=== PATIENT | male | born 1950 | race Caucasian/White ===

== ENCOUNTER 2018-09-21 14:47 | Inpatient (IN) | payer OTHER ==
[~2018-09-21] VITALS: Ht 170.2 cm; Wt 83.4 kg
[2018-09-21] MEDS ORDERED: K-TAB ER20 MEQ PO (15:08)
[2018-09-21] MEDS ORDERED: OXYCODONE HCL5 MG PO (18:06)
[2018-09-21] MEDS ORDERED: TRAZODONE HCL150 MG PO (18:07)
[2018-09-21] MEDS ORDERED: LANTUS100 UNITS/ SUB-Q (18:07)
[2018-09-21] MEDS ORDERED: ELIQUIS5 MG PO (18:07)
[2018-09-21] MEDS ORDERED: FOSINOPRIL SODI40 MG PO (18:08)
[2018-09-21] MEDS ORDERED: NOVOLOG100 UNIT/1 SUB-Q (18:08)
[2018-09-21] MEDS ORDERED: MODAFINIL200 MG PO (18:08)
[2018-09-21] MEDS ORDERED: OMEPRAZOLE20 MG PO (18:08)
[2018-09-21] MEDS ORDERED: VENTOLIN HFA18 GM INH (18:09)
[2018-09-21] MEDS ORDERED: REFRESH PLUS1 EACH OU (18:09)
[2018-09-21] MEDS ORDERED: LIPITOR40 MG PO (18:09)
[2018-09-21] MEDS ORDERED: FLONASE ALLERG9.9 ML NAS (18:10)
[2018-09-21] MEDS ORDERED: ALDACTONE25 MG PO (18:10)
--- NOTE | 2018-09-21 21:00 | NUR ---
PATIENT ARRIVED VIA STRETCHER FROM ED. SELF TRASNFERED INDEPENDENTLY. STAND WEIGHT DONE. PATIENT SITTING ON EDGE OF BED. ADMISSION COMPLETED. IN TO CONSULT ON PATIENT. PATIENT REPORTS ABD PAIN AND GENERALIZED CHRONIC PAIN 10/05. PRN MORHPINE PROVIDED. IV FLUIDS PER ORDER. ORIENTED PATIENT TO ROOM, PLAN OF CARE, AND ENCOURAGED HIM TO CALL FOR ANY NEEDS.
--- NOTE | 2018-09-21 23:17 | NUR ---
PATIENT ASSESSMENT DONE. SEE ASSESSMENT FOR DETAILS. PATIENT IS GOING TO TRY AND GET SOME SLEEP AT THIS TIME.
--- NOTE | 2018-09-22 01:09 | NUR ---
PATIENT STILL AWAKE, HAS NO NEEDS AT THIS TIME AND IS WATCHING TV IN THE DARK IN BED.
--- NOTE | 2018-09-22 02:11 | NUR ---
PATIENT COMPLAINING OF 8/10 ABD PAIN. 4MG IV MORPHINE GIVEN.
--- NOTE | 2018-09-22 03:31 | NUR ---
PATIENT CALLED WITH COMPLAINT OF NAUSEA THAT WOKE HIM UP. 12.5MG IV PHENERGAN IN 20MLS NS GIVEN SIVP.
--- NOTE | 2018-09-22 03:31 | NUR ---
PATIENT GIVEN 12.5MG IV PHENERGAN FOR C/O NAUSEA.
--- NOTE | 2018-09-22 05:30 | NUR ---
PATIENT RESTING IN BED WATCHING TV NAUSEA GONE. NO COMPLAINTS OR NEEDS AT THIS TIME EXCEPT HIS PAIN IS STILL AT 7/10 AND HE SAYS THAT IS RIGHT WHERE IT TAKES THE EDGE OFF THE PAIN. BOWEL TONES ACTIVE. LUNGS CLEAR. 2+ PITTING EDEMA HAS IMPROVED IN HIS FEET. LUNG BASES CLEAR BUT ARE DEMINISHED. IV INFUSING AND WNL.
--- NOTE | 2018-09-22 07:46 | NUR ---
0724: Bedside report recieved from John BULLARD. Call lyles within reach.
--- NOTE | 2018-09-22 08:02 | NUR ---
FAXED CHART NOTES TO [facility] WITH DR BALLESTEROS REQUEST FOR TRANSFER TO A [place] [facility] THAT CAN TAKE CARE OF HIS HERNIA NEEDS, THESE CHART NOTES INCLUDE, COPY OF ORDER, FACE SHEET, ER NOTES AND SUMMARY, H AND P, CONSULT, IMAGING, LABS AND MEDS.
--- NOTE | 2018-09-22 08:12 | NUR ---
Pt now sitting up at the bedside and he states the position change has helped his abd pain. He is now rating it at an 8/10. See Emar.
--- NOTE | 2018-09-22 09:24 | NUR ---
Pt sleeping, RR 16.
--- NOTE | 2018-09-22 11:09 | NUR ---
Pt ambulated in the halls and walked two laps, he was stable on his feet with his cane. Pt denies any pain or sob at this time and he states he has some nausea but that it is under control at this time.
[2018-09-22] MEDS ORDERED: VIAGRA100 MG PO (11:57)
[2018-09-22] MEDS ORDERED: LASIX40 MG PO (11:57)
--- NOTE | 2018-09-22 11:58 | NUR ---
MED REC COMPLETE
--- NOTE | 2018-09-22 12:11 | NUR ---
Pt complaints of nausea and was medicated as ordered.
--- NOTE | 2018-09-22 13:50 | NUR ---
PT STATES HIS PAIN IS A 9/10, HE WAS MEDICATED ORDERED, SEE EMAR. PT IS UPSET HE STATES THAT "NO ONE IS GIVING ME ANY INFORATION". I ASKED IF HE SAW DR GROSS TODAY AND HE STATES THAT HE DID BUT DID NOT GET THE INFORMATION HE NEEDS. I ATTEMPTED TO INFORM HIM OF WHAT WE ARE DOING FOR HIM AND HE STATES, "I CAN DO THIS AT HOME". THE PT STATES THAT HE NEEDS TO SEE HIS DOCTOR, I WILL NOTIFY DR GROSS OF THE PT'S COMPLAINTS. THE PT WAS GIVEN CHF INFORMATION AND CHF WAS DISCUSSED.
--- NOTE | 2018-09-22 14:31 | NUR ---
DISCUSSED HEALTH CARE COURSE WITH PATIENT AFTER BEING ASKED BY PRIMARY NURSE. PATIENT BECAME BELIGERENT AND ASKED TO SEE DR. GROSS, ASKED THIS NURSE TO LEAVE HIS ROOM. DR. GROSS NOTIFIED, BUT HAS ALREADY SEEN PATIENT TODAY. DR. BALLESTEROS IN TO SEE PATIENT.
--- NOTE | 2018-09-22 14:47 | NUR ---
Dr Corona notified of the pt's compliants and he and Nicol BULLARD are in the pt's room speaking with him at this time.
--- NOTE | 2018-09-22 15:39 | NUR ---
The pt states his pain is improved and he is now happy that he has a "plan" after speaking with Dr Corona. The pt was instructed in his new diet orders and in how to order his dinner.
--- NOTE | 2018-09-22 16:02 | NUR ---
PATIENT ASKING WHAT HE CAN EAT ON A LOW-FIBER DIET. I BROUGHT HIM A LOW-FIBER MENU AND ALSO A PRINTOUT FROM THE [facility] THAT HE CAN TAKE HOME. HE LOOKED IT OVER AND IS LOOKING FORWARD TO ORDERING DINNER ON HIS OWN HE HASN'T EATEN IN 1.5 DAYS. WILL CONTINUE TO MONITOR.
--- NOTE | 2018-09-22 16:12 | NUR ---
PT CALLED AND STATES HIS PAIN IS AN 8 AND NEVER GOES BELOW A 6. SEE EMAR.
--- NOTE | 2018-09-22 16:30 | NUR ---
RECIEVED A PHONE MESSAGE FROM PT STATING THAT WHEN HE DOES GET DC'D HE WOULD LIKE FOR THE DR TO ORDER SOME KIND OF ORAL ANTIEMETIC. I DISCUSSED THIS WITH DR BALLESTEROS AND HE STATED THAT SHOULDN'T BE A PROBLEM.
--- NOTE | 2018-09-22 17:22 | NUR ---
Pt resting in his bed and he states he is awaiting his dinner. He appears comforable and in no distress at this time.
--- NOTE | 2018-09-22 18:15 | NUR ---
Pt ate about 90% of his dinner and denies any change in condition.
--- NOTE | 2018-09-22 18:50 | NUR ---
Pt complains of nausea and is being treated as ordered. The pt states that the nausea is no worse than what it was prior today before he ate. See EMAR.
--- NOTE | 2018-09-22 18:50 | NUR ---
PT CALL LIGHT ON. PT REQUESTS NAUSEA MEDICATION. PTS RN CONSULTED, OK TO GIVE PHENEGRAN. GIVEN ORDRED (SEE MAR). PT SITTING ON EDGE OF BED. NO ADDITIONAL REQUESTS OR COMPLAINTS AT THIS TIME.
--- NOTE | 2018-09-22 18:54 | NUR ---
Pt ate dinner and is now complaining of nausea, he did state that this is the same nausea that he felt prior in the day as well. Dr Corona aware of the pt's status at this time.
--- NOTE | 2018-09-22 19:25 | NUR ---
SHIFT REPORT RECEIVED FROM ORLANDO THEODORE AT BEDSIDE. PT AWAKE AND RESTING IN BED, FAMILY IN ROOM. IV FLUIDS INFUSING PER MD ORDERS, IV SITE WNL. PT DENIES NEEDS, CALL LIGHT IN REACH.
--- NOTE | 2018-09-22 19:25 | NUR ---
SHIFT REPORT RECEIVED FROM ORLANDO THEODORE AT BEDSIDE. PT IN BED AND AWAKE. FAMILY IN ROOM. IV FLUIDS INFUSING PER MD ORDERS, IV SITE WNL. PT DENIES PAIN OR ADDITIONAL NEEDS. NO DISTRESS NOTED, PT APPEARS COMFORTABLE. CALL LIGHT IN REACH.
--- NOTE | 2018-09-22 19:55 | NUR ---
ACCUCHECK COMPLETED BY AIRPLANE PILOT SUPERVISOR SHADI. RESULT OF 340.
--- NOTE | 2018-09-22 20:15 | NUR ---
CHARGE NRSE ROUNDING NOTE: IN ROOM, CBG 340'S, UPSET THAT THIS NURSE DID HIS ACCUCHECK PRIOR TO GIVING HIM HIS INSULIN. EXPLAINED TO PT HOW WE USUALLY DO ACCUCHECK FIRST SOMETIMES INSULIN MAY NOT BE NEEDED IF HIS BG IS LOW. " WHAT I DO AT HOME IS I GIVE MY INSULIN FIRST, I WAIT AND THEN I CHECK MY SUGARS". REASSURED, PRIMARY NURSE NOTIFIED. NO OTHER REQUESTS, CALL LIGHT AT BEDSIDE, PT SITTING EDGE OF BED
--- NOTE | 2018-09-22 20:30 | NUR ---
ASSESSMENT COMPLETE, PT A/OX4. DENIES PAIN, PT ON RA. ACCUCHECK RESULT OF 340, 9 UNITS INSULIN SS AND 10 UNITS LANTUS ADMINISTERED TO SELF BY PT. PT REPORTS NAUSEA IS "BETTER". WILL MONITOR, BOWEL TONES ACTIVE. IV FLUIDS INFUSING PER MD ORDERS, IV SITE WNL. SITE OF INCARCERATED HERNIA NOTED TO RIGHT SIDE OF ABDOMEN, TENDERNESS NOTED. WILL MONITOR. NO FURTHER NEEDS, CALL LIGHT IN REACH.
--- NOTE | 2018-09-22 22:12 | NUR ---
Pt medicated with 0.5mg IV per c/o 11/05 abd pain.
--- NOTE | 2018-09-23 01:19 | NUR ---
pt reports increasing nausea, prn phenergen administered per pt request. iv site wnl, pt denies additional needs. call light in reach.
--- NOTE | 2018-09-23 03:30 | NUR ---
PT RESTING IN BED, EYES CLOSED, RR WNL. PT APPEARS COMFORTABLE, NO SIGNS OF DISTRESS NOTED. CALL LIGHT IN REACH.
--- NOTE | 2018-09-23 04:16 | NUR ---
PATIENT C/O 8/10 ABD PAIN AND GIVEN 4MG IV MORPHINE SLOW IV PUSH.
--- NOTE | 2018-09-23 05:32 | NUR ---
PT RESTING IN BED, EYES CLOSED, RR WNL. PT APPEARS COMFORTABLE, NO DISTRESS NOTED, CALL LIGHT IN REACH. IV FLUIDS INFUSING PER MD ORDERS.
--- NOTE | 2018-09-23 05:48 | NUR ---
PT SLEPT ON AND OFF THIS SHIFT. A/OX4, PAIN CONTROLLED WITH PRN MORPHINE.VSS, PT ON RA. IV FLUIDS INFUSING PER MD ORDERS, IV SITE WNL. PT ON LOW FIBER DIET, TOLERATING WELL. SCHEDULED ACCUCHECKS WITH INSULIN SS AND LANTUS AT NIGHT. VOIDING QS, NO BM THIS SHIFT. USES CALL LIGHT APPROPERIATELY.
--- NOTE | 2018-09-23 06:30 | NUR ---
in room to complete vs. room vs chart unable to obtain bp reading. this rn went to go get vs chart in hallway. when this rn returned, pt was upset and stated, "the other nurse came in here and shook me to wake me up. then she wanted me to get on the scale. i said, i'm going to go pee first then i will". pt then began crying and stated, "she invaded my space, this room is my space". this rn provided therapeutic communication to pt. this rn is unsure exactly who pt was referring to as this rn and lashawn jose were in the room to collect vs and complete assessment. this rn gently patted pt on arm and stated, "radha, i need to get your vital signs". pt was minimally startled then appeared compliant and in fine spirits. this rn was told by lashawn jose that the pt kicked her out of room. this rn apologized to pt and provided therapeutic communication to resolve misscommunication. pt took own weight on scale, reports weight of 183.3. pt also resports 9/10 pain, 5 mg of prn morphine administered. pt denies additional needs, appears comfortable. call light in reach. iv fluids infusing per md orders.
--- NOTE | 2018-09-23 07:20 | NUR ---
PT RESTING IN SEMI FOWLERS POSITION IN BED, WATCHING TV. PT ALERT AND ORIENTED. BEDSIDE REPORT RECEIVED FROM ALEAH SEGOVIA. PT DENIES NEEDS/CONCERNS AND APPEARS TO BE IN NO DISTRESS. CALL LIGHT AND H2O IN REACH.
--- NOTE | 2018-09-23 08:23 | NUR ---
CALLED AND UPDATED LUPE BRANCH ON PT CONDITION AND PLAN FOR NOW.
--- NOTE | 2018-09-23 09:07 | NUR ---
PT REPORTS 9/10 PAIN TO ABDOMEN, SITTING UP IN BED WATCHING TV. PRN IV OPIOD ADMINISTERED PER PT REQUEST. PT ASSESSMENT COMPLETED AND AM MEDS ADMINISTERED, SEE EMAR. CALL LIGHTAND H20 IN REACH. PT DENIES FURTHER NEEDS/CONCERNS.
[2018-09-23] MEDS ORDERED: ZOFRAN4 MG PO (09:55)
--- NOTE | 2018-09-23 10:15 | NUR ---
PT RESTING IN SEMI FOWLERS POSITION IN BED, REPORTS READINESS TO DISCHARGE. CALL LIGHT AND H2O IN REACH. PT DENIES FURTHER NEEDS/CONCERNS.
--- NOTE | 2018-09-23 10:19 | NUR ---
DID PATIENT'S BLOOD SUGAR CHECK. SET PATIENT UP FOR SHOWER. AFTER HE ATE BREAKFAST I WRAPPED HIS IV. HE WENT IN AND TOOK HIS SHOWER. I CHANGED THE BED LINENS. AFTER HE WAS FINISHED TAKING HIS SHOWER I WENT IN AND PICKED UP ALL THE TOWELS. PATIENT IS NOW LAYING IN HIS BED AND RELAXING.
--- NOTE | 2018-09-23 15:35 | HP ---
[facility] [address], [place] [address] Signed ADMISSION DATE: 09/21/2018 REASON FOR ADMISSION: Large incarcerated incisional hernia through prior paramedian incision. HISTORY OF PRESENT ILLNESS: This 67-year-old white man is a and gets all of his medical care at the [facility]. The patient had been having several days of constipation and some increased swelling of his right lower abdomen. He has self administered a diuretic which he had (not under the direction of medical care for this) as he has been developing increasing swelling of his legs. He had nausea and some vomiting, but no significant abdominal pain particularly. He has been passing flatus and had a hard bowel movement yesterday. He is feeling better, but presented to the clinic at the [facility]. He was evaluated by Dr. Zaidi, who notes in his notation that the radiology services were essentially not functional at this time. He recommended that the patient go to emergency room for possible small-bowel obstruction for evaluation and imaging. He presented to [facility] Emergency Room because he lives in [place] though he was advised according to notes to go to the emergency room in [place] itself. He was evaluated by Dr. Santiago and thought not to have significant toxicity by any means. His complaints earlier in the day had included abdominal pain, constipation, episodic vomiting, and some dry heaves. A plain abdominal x-ray had shown possible small bowel obstruction and on that basis, a CT scan was performed. The CT scan does not to my examination truly shows small bowel obstruction per se, but it does show a fair amount of small bowel in the subcutaneous space in the right lower abdomen related to incisional hernia or as was interpreted by the radiologist a spigelian hernia. As the patient was not particularly toxic in his first appearance, I was called about this by the emergency room physician. When inquiring regarding his lab status, no labs have been obtained and therefore they were to be obtained in followup and disposition based on those findings. I did not receive a call from the emergency room again and therefore presented myself. He is now under the watchful eye of Dr. Curiel. His lab studies performed did not show an elevated white count (9.4), hematocrit 45.2 with platelets 251,000. Coag studies are pending and chem profile showed a creatinine of 1.50, but electrolytes otherwise normal. Glucose was elevated at 270. Liver enzymes Electronically Signed By: ELLIE BALLESTEROS MD 09/23/18 1535 PATIENT NAME: NINA PINZON HISTORY AND PHYSICAL DATE OF : 54 REPORT #: [id number] PHYSICIAN: ELLIE BALLESTEROS MD PCP: SULTANA ZAIDI MD REPORT IS CONFIDENTIAL AND NOT TO BE RELEASED WITHOUT AUTHORIZATION [facility] [address], [place] [address] Signed were normal. 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 There was an empty urinary bladder. The patient has, since I presented, now been started on intravenous fluids. He has urinated while in the emergency room. PAST MEDICAL HISTORY: Significant for: 1. Coronary bypass grafting x3 with pacemaker placement. 2. Distant history of appendectomy through right paramedian incision with subsequent possible incisional hernia requiring repair. 3. Chronic opioid tolerance for which he is being weaned from oxycodone. 4. Self described fibromyalgia. 5. Stage 3 renal failure without need for dialysis or other renal replacement therapy. 6. He is known to have congestive heart failure by self description. MEDICATIONS: His current medications include potassium chloride, oxycodone 5 mg p.o., Eliquis 5 mg p.o. daily, trazodone 150 mg p.o. h.s., Lantus insulin, omeprazole 20 mg daily, fosinopril 40 mg p.o. daily, modafinil 200 mg daily, Refresh Plus ophthalmic eyedrops, albuterol inhaler, atorvastatin 40 mg daily, Flovent Diskus inhaler, and spironolactone for edema. SOCIAL HISTORY: The patient was formally from [place]. He moved to [place] in the past number of months as expanding rent increases in the [place] area forced him out. He has seven children. He has been . He is estranged from his children and his . He lives alone. He denies alcohol use. He denies prior alcoholism. REVIEW OF SYSTEMS: He denies any abdominal pain at this time, formally he did have abdominal pain. He has not had nausea, vomiting, or belching since being in the ER. His abdominal pain is improved. PHYSICAL EXAMINATION: GENERAL: This is a pleasant white man, who is standing at the foot of his stretcher when I met him. He does not look toxic or even uncomfortable at this time. HEENT: His mucous membranes are dry, however. Trachea is midline. CHEST: Clear. HEART: Regular without murmur. ABDOMEN: Somewhat distended and definitely obese and dysmorphic. On the right lower Electronically Signed By: ELLIE BALLESTEROS MD 09/23/18 1535 PATIENT NAME: NINA PINZON HISTORY AND PHYSICAL DATE OF : 54 REPORT #: [id number] PHYSICIAN: ELLIE BALLESTEROS MD PCP: SULTANA ZAIDI MD REPORT IS CONFIDENTIAL AND NOT TO BE RELEASED WITHOUT AUTHORIZATION [facility] [address], [place] [address] Signed abdomen is a bulky area of herniation, which is mildly tender with manipulation. There is a right paramedian incision noted in the region of the hernia. EXTREMITIES: Show peripheral edema. LABORATORY STUDIES: Show white count of 9.4, hematocrit 45.2. Electrolytes are abnormal for creatinine of 1.50, liver enzymes are normal, albumin 3.5. The CT scan was reviewed in detail. I made multiple calls to the [facility] ( ) and spoke with multiple operators. There was no clinician or officer of the day or any other point of contact including nursing sanitation supervisor with whom I can speak unfortunately. ASSESSMENT AND PLAN: The patient does not really have a bowel obstruction or certainly not a high-grade bowel obstruction. He has a longstanding incisional hernia related to a paramedian incision. It is not a spigelian hernia technically, it is an incisional hernia actually. There was a fair amount of bowel out in the hernia in the subcutaneous space, which is a longstanding phenomenon and according to patient unknown to his care providers at the [facility]. He has underlying comorbidities, which were significant including congestive heart failure, pacemaker placement, ascites of the abdomen, peripheral edema, chronic anticoagulation with Eliquis, and other lesser comorbidities. I believe the safest course for this patient is admission to the hospital for IV fluid administration. Most likely elective hernia repair would be advocated. Whether he had a bowel obstruction or obstruction like symptoms that have since resolved is uncertain. We will get abdominal KUB in the morning. We will have systems planner help coordinate a transfer to the [facility] as is typically the case under such circumstances for definitive management of his incarcerated incisional hernia, in particular appropriate given his underlying comorbidities and high probability of prolonged hospitalization. Discussed all this with the patient who understands. MD HAIDER Gomes/JESIKAL /[id number] Electronically Signed By: ELLIE BALLESTEROS MD 09/23/18 1535 PATIENT NAME: NINA PINZON HISTORY AND PHYSICAL DATE OF : 54 REPORT #: [id number] PHYSICIAN: ELLIE BALLESTEROS MD PCP: SULTANA ZAIDI MD REPORT IS CONFIDENTIAL AND NOT TO BE RELEASED WITHOUT AUTHORIZATION [facility] [address] [place] [id number] Signed cc: Sultana Zaidi MD Copies: SULTANA ZAIDI MD ~ Electronically Signed By: ELLIE BALLESTEROS MD 09/23/18 1535 PATIENT NAME: NINA PINZON HISTORY AND PHYSICAL DATE OF : 54 REPORT #: [id number] PHYSICIAN: ELLIE BALLESTEROS MD PCP: SULTANA ZAIDI MD REPORT IS CONFIDENTIAL AND NOT TO BE RELEASED WITHOUT AUTHORIZATION
--- NOTE | 2018-09-24 22:35 | DS ---
[facility] [address], [place] [address] Signed ADMISSION DATE: 09/21/2018 DISCHARGE DATE: 09/23/2018 REASON FOR ADMISSION: This 67-year-old white man is a and gets his medical care at the [facility] in [place]. He lives in [place]. He has had several days of increasing constipation and some swelling of his right lower abdomen. He has been episodically compliant medically but sometimes does direct his own use of prescribed medications and does self administration of diuretics. He is a patient of [facility]. [facility] at [facility] [place] [place] He had seen him on the day of his admission with nausea and vomiting, diminished passage of flatus and only hard bowel movements the day before. He was evaluated by Dr. Zaidi noting lack of Radiology Services at the local [place] hospital at the time of his evaluation. He recommended the patient go to the emergency room for possible small-bowel obstruction evaluation and imaging. He presented to [facility] because he lives in [place] and was evaluated by Dr. Santiago. Plain abdominal x-ray was suggestive of bowel obstruction. A CT scan showed a large right lower abdominal wall hernia with enteric contents and possible concordant small-bowel obstruction. He is admitted for further evaluation and care for presumed small bowel obstruction. PHYSICAL EXAMINATION: GENERAL: Pleasant white man, who did not look to be in severe distress. CHEST: Clear. HEART: Irregularly irregular. Median sternotomy incision was well healed. As he did not appears significantly toxic and despite a rather sizable hernia with small bowel in the subcutaneous space in the right lower abdomen, observation was deemed appropriate. A nasogastric tube was deemed unlikely necessary. With close observation, he had marked improvement of his symptoms. It is noted that he has had a right paramedian incision for appendectomy at a young age and incisional hernia repair from that area in the distant past as well. His other issues include congestive heart failure by self description, notable ascites, peripheral edema, and chronic opiate tolerance for which he is being weaned from oxycodone. His abdominal x-ray on followup showed resolution of any bowel obstruction issue. Palpation of the abdomen showed no tenderness in the hernia and it appeared to be reducible. Electronically Signed By: ELLIE BALLESTEROS MD 09/24/18 2235 PATIENT NAME: NINA PINZON DISCHARGE SUMMARY DATE OF : 54 REPORT #: [id number] PHYSICIAN: ELLIE BALLESTEROS MD PCP: SULTANA ZAIDI MD REPORT IS CONFIDENTIAL AND NOT TO BE RELEASED WITHOUT AUTHORIZATION [facility] [address] [place] [id number] Signed A fair amount of time and effort was spent characterizing his eligibility for surgical care locally considering his [place] status. It was ultimately determined that there were no available beds in any [place] Hospital in our region to accommodate him. The patient preferred, if possible to be managed at the [place] Hospital. Elective repair of this hernia would be recommended. He was advanced in his diet, which he tolerated well. By time of discharge, he is ambulating well. There is no nausea, vomiting, or abdominal pain and is tolerating solid food without problem. It is our intention that he follow up with Dr. Zaidi, his [facility], who will coordinate further a plan of surgical management in the [place] system. The patient would like to have some antinausea pills available to him as he has had episodic nausea for a number of years. A small prescription of Zofran will be available to him. DISCHARGE MEDICATIONS: 1. Will largely be what he was on before. This will include potassium chloride 20 mEq tablets two tablets p.o. b.i.d. with meals. 2. Oxycodone 5 mg five times daily with tapering as directed by Dr. Zaidi. 3. Eliquis 5 mg b.i.d. 4. Trazodone 150 mg at bedtime. 5. Lantus insulin 70 units subcu at 11 and 2300 and NovoLog insulin 10-15 units subcutaneous three times a day before meals depending on blood sugar checks. 6. Omeprazole 20 mg b.i.d. with meals. 7. Fosinopril 40 mg p.o. daily. 8. Modafinil 200 mg daily for narcolepsy. 9. Refresh Plus eyedrops as needed. 10. Albuterol sulfate two puffs as needed for shortness of breath. 11. Atorvastatin 40 mg at bedtime. 12. Spironolactone 25 mg p.o. daily as needed. 13. Viagra daily as needed for circulation issues. 14. Lasix 40 mg p.o. daily. 15. In addition, he has Zofran 4 mg p.o. q.6 hours as needed for nausea #20. FOLLOWUP PLANS: He will not be returning to my evaluation, but will rather follow up with Dr. Zaidi, his primary physician, who referred him for imaging and evaluation to begin with. It is anticipated he will have coordination for surgical care at the [facility] under the Electronically Signed By: ELLIE BALLESTEROS MD 09/24/18 2235 PATIENT NAME: NINA PINZON DISCHARGE SUMMARY DATE OF : 54 REPORT #: [id number] PHYSICIAN: ELLIE BALLESTEROS MD PCP: SULTANA ZAIDI MD REPORT IS CONFIDENTIAL AND NOT TO BE RELEASED WITHOUT AUTHORIZATION [facility] [address] [place] [address] [address] Zaidi. DISCHARGE DIAGNOSES: 1. Large paramedian incisional hernia versus small-bowel in subcutaneous space, now reducible and without sign of obstruction. 2. History of appendectomy in childhood by right paramedian incision with subsequent herniation and repair (failed). 3. Congestive heart failure. 4. Peripheral edema. 5. Insulin-dependent diabetes mellitus. 6. Clinical gastroesophageal reflux. 7. Hypertension. 8. Reactive airways disease. 9. Recent sqam-re-dibcggwa ascites (resolving). 10. Peripheral edema (resolving). MD HAIDER Gomes/MODL /[id number] cc: MD Mackenzie Nelson MD Copies: SULTANA ZAIDI MD, CYNTHIA MD ~ Electronically Signed By: ELLIE BALLESTEROS MD 09/24/18 2235 PATIENT NAME: NINA PINZON DISCHARGE SUMMARY DATE OF : 54 REPORT #: [id number] PHYSICIAN: ELLIE BALLESTEROS MD PCP: SULTANA ZAIDI MD REPORT IS CONFIDENTIAL AND NOT TO BE RELEASED WITHOUT AUTHORIZATION
== END 2018-09-23 10:55 | disposition home or self-care (01) | DRG 394 ==
LOC: ED 14:47 → MS 20:13
PROVIDERS: ADMIT Surgery
DX: K43.0 Incisional hernia with obstruction, without gangrene (principal); I13.0 Hypertensive heart and chronic kidney disease with heart failure and stage 1 through stage 4 chronic kidney disease, or unspecified chronic kidney disease; R18.8 Other ascites; E11.40 Type 2 diabetes mellitus with diabetic neuropathy, unspecified; I50.9 Heart failure, unspecified; N18.3 Chronic kidney disease, stage 3 (moderate); E11.22 Type 2 diabetes mellitus with diabetic chronic kidney disease; E78.5 Hyperlipidemia, unspecified; K21.9 Gastro-esophageal reflux disease without esophagitis; H91.90 Unspecified hearing loss, unspecified ear; I25.10 Atherosclerotic heart disease of native coronary artery without angina pectoris; J45.909 Unspecified asthma, uncomplicated; Z95.0 Presence of cardiac pacemaker; Z88.6 Allergy status to analgesic agent; Z88.8 Allergy status to other drugs, medicaments and biological substances; Z95.1 Presence of aortocoronary bypass graft; Z87.891 Personal history of nicotine dependence; Z79.02 Long term (current) use of antithrombotics/antiplatelets; Z79.51 Long term (current) use of inhaled steroids; Z79.899 Other long term (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; Z79.4 Long term (current) use of insulin; Z79.891 Long term (current) use of opiate analgesic
CPT/HCPCS: 36415; 71045; 74018; 74176; 80053; 83880; 85025; 85610; 85730; 96374; 99285-25; J1644; J1815; J1940; J2270; J2550; J7120

== ENCOUNTER 2019-02-14 19:31 | Inpatient (IN) | payer OTHER ==
[~2019-02-14] VITALS: Ht 170.2 cm; Wt 95.3 kg
[~2019-02-14 19:31] MED LIST: ALDACTONE25 MG PO; ELIQUIS5 MG PO; FLONASE ALLERG9.9 ML NAS; FOSINOPRIL SODI40 MG PO; K-TAB10 MEQ PO; LANTUS100 UNITS/ SUB-Q; LASIX80 MG PO; LIPITOR40 MG PO; MODAFINIL200 MG PO; NOVOLOG100 UNIT/1 SUB-Q; OMEPRAZOLE20 MG PO; OXYCODONE HCL5 MG PO; REFRESH PLUS1 EACH OU; TRAZODONE HCL100 MG PO; VENTOLIN HFA18 GM INH; VIAGRA100 MG PO; ZOFRAN4 MG PO
--- OUTSIDE RECORDS SUMMARY | 2019-02-14 19:34 | XMS ---
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 E.DDaina VISIT COUNT (12 MO.) Nanette Wan TOTAL 2 NOTE: Visits indicate total known visits. ED/UCC VISIT TRACKING (12 MO.) 02/14/2019 19:32 [facility] TYPE: Emergency COMPLAINT: - ABDOMINAL PAIN 09/21/2018 14:47 [facility] TYPE: Emergency COMPLAINT: - ABD PAIN INPATIENT VISIT TRACKING (12 MO.) 09/21/2018 20:[address] 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 - Unspecified asthma, uncomplicated - Other ascites - 1 Hyp hrt \T\ chr kdny dis w hrt fail and stg 1-4/unsp chr kdny - Presence of aortocoronary bypass graft - Heart failure, unspecified - 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 - Allergy status to oth drug/meds/biol subst status - halfway (current) use of inhaled steroids - Personal history of nicotine dependence - Unspecified asthma, uncomplicated - Personal history of nicotine dependence - Allergy status to analgesic agent status - 1 Hyp hrt \T\ chr kdny dis w hrt fail and stg 1-4/unsp chr kdny - Incisional hernia with obstruction, without gangrene - 1 Chronic kidney disease, stage 3 (moderate) - Athscl heart disease of an[place] coronary artery w/o ang pctrs - Unspecified hearing loss, unspecified ear - halfway (current) use of insulin - Other ascites - Presence of cardiac pacemaker - Other long term acute care registered nurse (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 - Gastro-esophageal reflux disease without esophagitis - Presence of cardiac pacemaker - 1 Type 2 diabetes mellitus w diabetic chronic kidney disease - Other half-way (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 - Unspecified hearing loss, unspecified ear - 1 Chronic kidney disease, stage 3 (moderate) - halfway (current) use of inhaled steroids - 1 Type 2 diabetes mellitus with diabetic neuropathy, unsp - 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
--- NOTE | 2019-02-15 00:50 | NUR ---
PT ARRIVED TO THE FLOOR VIA STRETCHER. HE WAS ORIENTED TO THE ROOM BY GUILLERMO BULLARD AND HOANG BULLARD. ADMISSION HX COMPLETED.
--- NOTE | 2019-02-15 01:00 | NUR ---
pt ARRIVES TO [facility] FLOOR VIA STRETCHER. AMBULATORY WITH CANE TO HOSPITAL BED. SPO2 81% ON RA. pt DROWSY, 3L OXYGEN BY NC PLACED ON pt TO MAINTAIN SATURATIONS >92%. ORIENTATION TO ROOM PROVIDED. pt VERBALIZES UNDERSTANDING TO USE CALL LIGHT BEFORE GETTING OUT OF BED. BED ALARM PLACED FOR pt SAFETY. IVF INFUSING WNL ORDERED. TITRATED TO 2L OXYGEN BY NC, SPO2 96%, CPOX IN PLACE. pt RATES PAIN 8/10, STATES CHRONIC, DENIES NEED FOR PRN MEDICATIONS. CALL LIGHT IN REACH.
--- NOTE | 2019-02-15 01:05 | NUR ---
PT VOIDED IN ED PRIOR TO DISCHARGE. OUTPUT RECORDED.
--- NOTE | 2019-02-15 01:30 | NUR ---
IN ROOM TO ASSESS PT, RLQ HERNIA IS QUIT LARGE. PT REPORTS CHRONIC PAIN AND STATES HE IS AT HIS BASELINE AT THIS TIME. HE DENIES NEEDS AND CALL LIGHT IS CLOSE.
--- NOTE | 2019-02-15 02:38 | NUR ---
PT IS RESTING WITH EYES CLOSED, RR IS EVEN AND NONLABORED ON 2LNC AND 94% CPOX. IV IS INFUSING FINE AND CALL LIGHT IS WITHIN REACH.
--- NOTE | 2019-02-15 05:00 | NUR ---
PT IS RESTING WITH EYES CLOSED, RR IS EVEN AND NONLABORED. CALL LIGHT IS WITHIN REACH.
--- NOTE | 2019-02-15 05:58 | NUR ---
PT IS RESTING WITH EYES CLOSED, RR IS EVEN AND NONLABORED. CALL LIGHT IS CLSOE AND IV IS INFUSING FINE.
--- NOTE | 2019-02-15 06:45 | NUR ---
ADMINSITERED ZOFRAN AND MORPHINE. PT IS SITTING AT EDGE OF BED AT THIS TIME AND DENIES FURTHER NEEDS. CALL LIGHT IS CLOSE.
--- NOTE | 2019-02-15 07:45 | NUR ---
0719: Report received from gaye BULLARD. Pt sitting at his bedside with his call lyles within reach. Sat 95% at this time.
--- NOTE | 2019-02-15 10:14 | NUR ---
NEW IV PLACED AFTER THE PT PULLED OUT HIS OLD ONE. HE DID NOT TOLERATE THE START WELL. PT MEDICATED FOR PAIN FOLLOWING THE RESTART OF THE IV. PT RAISED HIS VOICE AND STATES THAT I'M TAKING TO LONG WHEN THE WAS ASKED HIS NAME AND ALLERGIES AND HE STATES THAT I DON'T CARE ABOUT HIM AND HE YELLED HIS NAME IS "RON WOOD". AFTER HE WAS MEDICATED FOR PAIN HIS SAT DECREASED FROM 95 TO 83% AND HIS O2 WAS REPLACED AT 2L AND HIS SAT IS NOW 93% AND ON CONTINUES ON CPOX. CALL BRUSH WITHIN REACH.
--- NOTE | 2019-02-15 10:52 | NUR ---
FAXED CLINICALS TO [facility] OFFICE [phone]. CALLED AND SPOKE WITH MANDO IN THAT OFFICE [phone]. SHE STATES SHE WILL LOOK TO SEE IF THIS PATIENT IS TRAVEL ELIGIBLE AND THEY WILL LOOK AT CLINICALS AND WILL LET US KNOW IF HE CAN OR SHOULD STAY HERE FOR SURGERY IF NEEDED OR NEEDS TRANSFERED.
--- NOTE | 2019-02-15 10:55 | CONS ---
[facility] [address] [place], [place] [address] Signed DATE OF CONSULTATION: 02/15/2019 CHIEF COMPLAINT: Right lower quadrant abdominal pain and bulging. HISTORY OF PRESENT ILLNESS: Nina is a 68-year-old significantly disabled gentleman with insulin-dependent diabetes. He said at age 16, he underwent an open appendectomy. 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 It was closed, but then developed a 2nd hernia and apparently at least 25 years ago over in [place], [place], he had it repaired with mesh placed. He said at least 2 years ago, he thinks it came back. Last night, he noticed increased swelling and pain in that area, and so he came to emergency room for evaluation. In the emergency room, his white count was normal, but his sodium was low. Of course, his blood sugar is high. He is tender in that area and he has a CT scan showing that the right colon actually drawn into that with possibly some kinking, it is not obstruction of the right colon. The small bowel seems to be okay. The hernia neck is around 4.1 cm. He also has cholelithiasis and he has a 2.3 cm lesion in the upper pole of the right kidney and a small less than 1 cm lesion in the lateral aspect of the left kidney that will need to be evaluated as outpatient. He also has a small left inguinal hernia containing some fat along with some cholelithiasis. I have been asked to admit him overnight as a general surgeon on-call. In addition, he told me about his heart and he was supposed to see his heart doctor this last year, he never went. He does have a pacemaker. He is not sure if he has had a heart attack, but he has congestive heart failure and renal failure as well with a pacemaker in place. He is not able to tell me much about his heart history. He thinks he had an echocardiogram at our hospital within the last year or so. ALLERGIES: 1. Acetaminophen. 2. Atenolol. 3. Lisinopril. MEDICATIONS: 1. Albuterol. 2. Eliquis. 3. Atorvastatin. 4. Refresh eye drops. 5. Fluticasone. 6. Fosinopril. 7. Lasix. 8. Potassium chloride. 9. Viagra. 10. Spironolactone. Electronically Signed By: CONNIE HAMMOND MD 02/15/19 1055 PATIENT NAME: NINA PINZON CONSULTATION DATE OF : 54 REPORT #: [id number] PHYSICIAN: CONNIE HAMMOND MD PCP: SULTANA ZAIDI MD REPORT IS CONFIDENTIAL AND NOT TO BE RELEASED WITHOUT AUTHORIZATION [facility] [address] [place] [id number] Signed 11. Trazodone. 12. Zofran. 13. Lantus. 14. NovoLog. 15. Omeprazole. 16. Modafinil. PAST MEDICAL HISTORY: Includes colonic polyps, fibromyalgia, congestive heart failure, chronic renal failure stage 3, hypercholesterolemia, hypertension, diabetes, obesity, obstructive sleep apnea, left inguinal hernia, insomnia, cholelithiasis, asthma, and pneumonia. PAST SURGICAL HISTORY: Includes pacemaker around seven years ago, triple bypass surgery in 2002, right lower quadrant incision, paramedian incision for appendectomy at age 16, then two incisional hernia repairs with the 2nd one requiring mesh at least 25 years ago. SOCIAL HISTORY: He does not smoke or drink. He does vape CBD. He is disabled. 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 He from his . He said he has 7 children total, 6 from his first and 1 from another lady. as part of the [facility] in [place], [place], with Dr. Sultana Zaidi as primary care provider. He said his talent sourcing specialist is with the [facility] in [place], [place], although he does not like to drive to [place]. He said he lives alone, but does drive here locally. REVIEW OF SYSTEMS: He had 10 systems reviewed and he said he had been in his general state of health until this hernia in the right lower quadrant increased in size and was not causing him pain. He talked about his glasses, some neck stiffness, his hearing loss, his pacemaker, his diabetes, his poor memory, anxiety, depression, and insomnia. He also talked about his poor dentition and his heart murmur. PHYSICAL EXAMINATION: VITAL SIGNS: His blood pressure is 124/71, his heart rate 64, his respiratory rate 14, and temperature is 98.9. He is 93% on room air. He is 5 feet 7 inches at 95 kg. GENERAL: Nina is a 68-year-old gentleman, who appears roughly his stated age. His memory is moderate, although generally cooperative. LUNGS: Have bilateral rhonchi. HEART: Appears to be regular rate and rhythm, but he does have a 3/6 systolic ejection murmur. I can feel the pacemaker on the right chest wall. ABDOMEN: Generally soft and flat, except in the right lower quadrant, where he clearly has incisional hernia with a long paramedian scar. It is a little firm in that area from the stool in the colon and a little tender, but he does not have peritonitis. Electronically Signed By: CONNIE HAMMOND MD 02/15/19 4205 PATIENT NAME: NINA PINZON CONSULTATION DATE OF : 54 REPORT #: [id number] PHYSICIAN: CONNIE HAMMOND MD PCP: SULTANA ZAIDI MD REPORT IS CONFIDENTIAL AND NOT TO BE RELEASED WITHOUT AUTHORIZATION [facility] [address] [place], [place] [address] Signed LABORATORY DATA: His white blood cell count is 9.1, neutrophils 73, hemoglobin 13.9, platelets 171. Sodium is 126, BUN 24, creatinine 1.47, glucose 242. Urinalysis is unremarkable. Liver function test unremarkable. Albumin is 4.0. RADIOGRAPHIC STUDIES: The CT scan of the abdomen and pelvis is reviewed in the report. He clearly has cholelithiasis and a 2.3 cm lesion in the right upper pole of the kidney, also less than 1 cm lesion in the lateral aspect of the left kidney. He has a small fat containing left inguinal hernia and then he has incisional hernia in the right lower quadrant containing large bowel with possible obstruction. It looks like the fascial defect is around 4.1 cm. ASSESSMENT AND PLAN: Nina is a 67-year-old gentleman, who has a recurrent symptomatic right lower quadrant incisional hernia. It contains his right colon actually. There is still a that: I suspect this some of that stool past he would actually we would actually be able to reduce that bowel. He has multiple medical issues that are simply unresolved and we are going to have to have a medical service come and see him. We will also try to track down his echocardiogram within this last year. In addition, the sodium is low and he would have to have that replaced before he could have surgery. He is also on Eliquis and we generally hold that for at least 5 days for elective surgeries. I have reviewed all this with Nina in detail. He has expressed understanding and agrees with above plan. Connie Hammond MD [facility]/MODL /[id number] cc: Sultana Zaidi MD Copies: SULTANA ZAIDI MD ~ Electronically Signed By: CONNIE HAMMOND MD 02/15/19 1055 PATIENT NAME: NINA PINZON CONSULTATION DATE OF : 54 REPORT #: [id number] PHYSICIAN: CONNIE HAMMOND MD PCP: SULTANA ZAIDI MD REPORT IS CONFIDENTIAL AND NOT TO BE RELEASED WITHOUT AUTHORIZATION
--- NOTE | 2019-02-15 11:15 | NUR ---
ASSUMED CARE OF PT AT THIS TIME, PT IS RESTING ON BED, STATES PAIN IS BETTER SINCE RECIEVING DILAUDID. CALL LIGHT IN EASY REACH. DENIES ANY NEEDS AT THIS TIME.
--- NOTE | 2019-02-15 11:53 | NUR ---
PT IS ALERT, WATCHING TV PROGRAMS, ASKED FOR PAIN MEDICATION FOR 8/10 PAIN, NO NAUSEA. IVF PATENT. DILAUDID 1MG IV GIVEN. CPOX IN PLACE.
--- NOTE | 2019-02-15 12:48 | NUR ---
PT REPORTS PAIN IS A LITTLE BETTER. DENIES ANY NEEDS AT THIS TIME.
--- NOTE | 2019-02-15 13:46 | NUR ---
PATIENT SITTING UP IN BED. VITAL SIGNS AND I&O DONE. CALL LIGHT WITHIN REACH. NO OTHER NEEDS AT THIS TIME
[2019-02-15] MEDS ORDERED: NUPERCAINAL56.7 GM TOP (16:45)
[2019-02-15] MEDS ORDERED: SELENIUM SULFI120 M1 TOP (16:46)
[2019-02-15] MEDS ORDERED: ONDANSETRON ODT8 MG PO (16:47)
--- NOTE | 2019-02-15 16:57 | NUR ---
Attempted to see pt midmorning and he was busy with staff and again now. He is sleeping and does not awaken to voice. Will see tomorrow for CM evaluation.
--- NOTE | 2019-02-15 17:29 | NUR ---
SPOKE WITH DR LEVIN PT IS STATING IF SURGERY IS NOT GOING TO BE DONE IN THIS HOSPITAL HE IS LEAVING, PT STATES HE WANTS DR HAMMOND TO COME IN AND DISCUSS THIS AGAIN WITH HIM. DR LEVIN ASKED THAT I CALL DR HAMMOND AND LET HIM KNOW PT STATEMENTS. I CALLED DR HAMMOND AND DISCUSSED PT STATING HE WILL LEAVE IF HE DOESN'T COME IN AND WANTS SURGERY HERE. DR HAMMOND SAYS HE WILL BE IN IN THE MORNING. EXPLAINED HE HAS SPOKE WITH PT IN DETAIL AND DISCUSSED CONCERNS FOR SURGERY DUE TO PULMONARY HYPERTENSION AND CARDIAC HISTORY. PT STATES HE WILL THINK ON IT AND LET ME KNOW HIS PLAN. REQUESTED MORE PAIN MEDICATION.
--- NOTE | 2019-02-15 17:30 | NUR ---
PATIENT SITTING UP ON THE EDGE OF THE BED. VITAL SIGNS AND I&O DONE. CALL LIGHT WITHIN REACH. NO OTHER NEEDS AT THIS TIME
--- NOTE | 2019-02-15 17:51 | EKG ---
[facility] [address] [facility] [place], [place] [address] Signed AV dual-paced rhythm with prolonged AV conduction Abnormal ECG No previous ECGs available Confirmed by JOSH LEVIN DO ([id number]) on 02/15/2019 5:51:17 PM Electronically Signed By: JOSH LEVIN DO 02/15/19 175 PATIENT NAME: NINA PINZON Electrocardiogram DATE OF : 54 PHYSICIAN: JOSH LEVIN DO REPORT #: [id number] REPORT IS CONFIDENTIAL AND NOT TO BE RELEASED WITHOUT AUTHORIZATION
--- NOTE | 2019-02-15 18:37 | NUR ---
PT IS RESTING ON BED, RESP EVEN AND UNLABORED, CPOX ON 94% WITH O2 @ 2L/NC WHILE RESTING. CALL LIGHT IN EASY REACH.
--- NOTE | 2019-02-15 19:20 | NUR ---
IN ROOM FOR REPORT, PT IS AWAKE IN BED. CALL LIGHT IS CLOSE AND IV IS INFUSING FINE.
--- NOTE | 2019-02-15 20:11 | NUR ---
ADMINISTERED MEDICATIONS AND ASSESSED PT. HE IS COOPERATIVE WITH CARE AT THIS TIME AND TALKED ABOUT NEEDED TO TRANSFER TO A HOSPITAL WITH A SPECIALIST. HE IS SITTING AT THE EDGE OF THE BED. HIS RLQ REMAINS PAINFUL AND DISTENDED. HE DENIES FURTHER NEEDS AT THIS TIME. CALL LIGHT IS CLOSE AND IV IS INFUSING FINE.
--- NOTE | 2019-02-15 20:29 | NUR ---
ROUNDED CHARGE. KOBY BULLARD PRESENT IN ROOM. PATIENT IS SITTING ON THE EDGE OF THE BED. PATIENT DENIES ANY NEEDS. CALL LIGHT IN REACH.
--- NOTE | 2019-02-15 22:26 | NUR ---
IN ROOM TO ADMINISTER PAIN MED FOR 9/10 PAIN. PT DENIES FURTHER NEEDS AT THIS TIME, LEMON SWABS AT BEDSIDE AND CALL LIGHT IS CLOSE. IV IS INFUSING FINE.
--- NOTE | 2019-02-16 00:02 | NUR ---
PT CALLED ASKING FOR PAIN MEDS, ADVISED HIM THAT IT ISNT QUIT THAT TIME BUT WILL RETURN SOON. HE DENIES FURTHER NEEDS. CALL LIGHT IS CLOSE.
--- NOTE | 2019-02-16 02:35 | NUR ---
IN ROOM TO ADMINISTER MEDS AND ASSESS PT. HE CONTINUES TO REPORT PAIN AT 9/10 AND DILAUDID ADMINISTERED. HE DENIES FURTHER NEEDS AND CALL LIGHT IS WITHIN REACH.
--- NOTE | 2019-02-16 03:56 | NUR ---
PT CALLED ASKING ABOUT PAIN MEDS. REMINDED HIM THAT IT IS TOO EARLY FOR THE NEXT DOSE. OFFERED ICE PACK AND MORE MOUTH SWABS. HELPED HIM REPOSITION HIS BED AND BELONGINGS. HE DENIES FURTHER NEEDS AT THIS TIME. CALL LIGHT IS CLOSE.
--- NOTE | 2019-02-16 04:36 | NUR ---
ADMINISTERED DILAUDID FOR PAIN, PT DENIES FURTHER NEEDS AT THIS TIME. CALL LIGHT IS CLOSE AND IV IS INFUSING FINE.
--- NOTE | 2019-02-16 07:42 | NUR ---
PT HAS BEEN SLEEPING SOUNDLY WOKE UP STATING HIS WATCH WENT OFF AND NO ONE GAVE HIM PAIN MEDICATION, STATES HE WANTS PAIN MEDICATION IF IT IS DUE EVEN IF HE IS SOUND ASLEEP. EXPLAINED PAIN MEDICATION WILL BE GIVEN IF HE REQUESTS IT. PT STATES HE IS IN PAIN 10/10, DILAUDID 1MG IV GIVEN, OXIMETER ON 93%. LOOKING ON PHONE, DENIES FURTHER NEEDS. CALL LIGHT IN EASY REACH.
--- NOTE | 2019-02-16 08:00 | NUR ---
In and spoke with pt for initial assessment. He becomes very tearful when I begin asking about his family. Discussed depression and he is quick to anger, but does state he saw a counselor last Wednesday. States he is unable to take antidepressants, due to other meds and also he has had bad reactions. Encouraged to continue to try as he seems very angry and easily upset. Discussed he needs surgery, but is unable to have here due to his heart issues. He states everyone is afraid of him, discussed we are not afraid of him, but for him. There is not a cardiology department or senior windows administrator on staff and this is required due to his medical problems. He states understanding. Pt states he has had many [facility] [place] and is willing to return. Let him know we have called the [facility] [place] and they are working on placement, but he has not been accepted at this time.
--- NOTE | 2019-02-16 09:40 | NUR ---
Call from [facility], they may have a bed in [place], they will transport pt, but he will need to be responsible for his trip home. In and spoke with pt. he states he has no one to transport and will not take an alternate form of transportation. Told him I would attempt to find him a ride.
--- NOTE | 2019-02-16 09:40 | NUR ---
PT CALLED AND REQUESTED PAIN MEDICATION, RATES PAIN 10/10, DENIES NAUSEA, ASKED IF HE CAN HAVE [place] [facility] TO DRINK. I WILL CONTACT DR HAMMOND AND SEE IF OK. DILAUDID 1MG IV GIVEN FOR PAIN.
--- NOTE | 2019-02-16 10:20 | NUR ---
Called and spoke with Thu Paiz [facility] [employer]. She states she will make sure he has a ride home. They have volunteers who will transport part way or all the way to [place]. They can meet them half way and pick him up is needed. She requests I give him her cell phone number for return. Thu Paiz [phone] [facility]. Called and update Jane at the [facility]. She will request their to accept him
--- NOTE | 2019-02-16 10:30 | NUR ---
Returned to call to Dr. Cueto to update. CA will call Dr. Cueto on his cell if and when they accept.
--- NOTE | 2019-02-16 11:30 | NUR ---
PT REQUESTING PAIN MEDICATION, TEXTING ON PHONE, RATES PAIN 10/10. DENIES NAUSEA. LEMON MOUTH SWABS PROVIDED FOR COMFORT.
--- NOTE | 2019-02-16 11:47 | NUR ---
HAPPENED BY PTS' RM HE WAS STRUGGLING TRYING TO GET TO THE CLOSET FOR HIS PERSONAL BELONGINGS. ASSISTED PT, HE THANKED ME. EXTENDED A BLESSING, WILL FOLLOW NEEDED
--- NOTE | 2019-02-16 12:10 | NUR ---
Call from Jane at [facility]. PT has been accepted by Dr. Cruz at [facility]. He will transport with [facility] [phone]. Awaiting call from transport for when they can transport pt to [place]. Spoke with Dr. Cueto and spoke with Anthony Richard.
--- NOTE | 2019-02-16 13:40 | NUR ---
PT REQUESTING PAIN MEDICATION, ASKED IF [facility]. TOLD HIM WE HAVE NOT. WATCHING TV PROGRAM, DENIES FURTHER NEEDS.
--- NOTE | 2019-02-16 14:40 | NUR ---
NOtified by [facility] they will pick Velasquez up at 1630 for transport to [place]. Called and let Dr. Cueto know as he is in surgery. Requested he write orders for transport. He will go to med/surg when he is finished.
--- NOTE | 2019-02-16 15:18 | NUR ---
DR HAMMOND IN TO SIGN TRANSFER ORDER.
--- NOTE | 2019-02-16 15:19 | NUR ---
Pt is to go to the ER by transport. Phone number to call RN report is [phone].
--- NOTE | 2019-02-16 15:30 | NUR ---
PT REQUESTING PAIN MEDICATION, RATES PAIN 10/10. DENIES NAUSEA, WATCHING TV PROGRAM.
--- NOTE | 2019-02-16 15:42 | NUR ---
CALL PLACED TO [facility] AND SPOKE WITH CLAUDIA CANNON @ [phone] AND CONFIRMED THEY WILL BE RECIEVING PT. SHE ASKED THAT I CALL BACK WITH REPORT AFTER 0580 TO SAME NUMBER.
--- NOTE | 2019-02-16 16:40 | NUR ---
TRANSPORTATION HAS ARRIVED TO TAKE PT TO [facility]. REPORT GIVEN AND PT ASSISTED ONTO STRETCHER.ORDERS NOTED, IVF MAINTAINED. DISCHARGED TO [facility] AT THIS TIME.
--- NOTE | 2019-02-16 19:18 | NUR ---
REPORT CALLED GAIL AT [facility].
--- NOTE | 2019-02-17 07:05 | DS ---
[facility] [address], [place] [address] Signed ADMISSION DATE: 02/15/2019 DISCHARGE DATE: 02/16/2019 FINAL DIAGNOSES: 1. Incarcerated right lower quadrant appendectomy, recurrent incisional hernia. 2. Severe cardiomyopathy. 3. Chronic renal failure. 4. Bilateral renal lesions, the right being greater than the left. PROCEDURES: 1. CT scan of abdomen and pelvis. 2. Echocardiogram (January 04, 2019). HISTORY OF PRESENT ILLNESS: Nina is a 68-year-old gentleman from our [facility]. I actually saw him earlier this year with consideration for a colonoscopy. However, he has a significant cardiac history. He usually he travels to the [facility] in [place] for those cardiac evaluations about once a year. However, he generally will have an echocardiogram here in [place], [place] each year prior to that visit. In the meantime, he had come into our local emergency room because he was having increased pain in his right lower quadrant incisional hernia. He had an open appendectomy around age 16. 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 Later, it came open again since around 25 years or more. He had it repaired over in [place], [place] apparently with mesh. He said in the last few years, it has come open again, it has been coming increasingly larger. He developed significant change with increased swelling and pain in that area. HOSPITAL COURSE: Nina was seen in the emergency room and had a normal white count, but he was certainly tender over that hernia and firm. The CT scan showed his hernia with about a 4 cm fascial defect containing much of the right colon, seems to be kinked in the mid right colon representing either a complete or at least a high-grade bowel obstruction. However, he was not distended and he certainly had a nausea or vomiting. He does have bilateral renal lesions with the right being larger than the left. He has some gallstones and probably a small left inguinal hernia with some fat. I have been asked to admit him as a general surgeon on-call. He was admitted overnight and hydrated and we held off any antibiotics by the following morning. His white count remained normal. He said he did not pass any flatus or stool, but it seemed like the exam was better. This seems smaller in size and less tense and not quite as tender. In the meantime, we track down the echocardiogram from December of this year at our hospital. His left ventricular ejection fraction is only 30% with severe global hypokinesia and his aortic Electronically Signed By: CONNIE HAMMOND MD 02/17/19 0705 PATIENT NAME: NINA PINZON DISCHARGE SUMMARY DATE OF : 54 REPORT #: [id number] PHYSICIAN: CONNIE HAMMOND MD PCP: SULTANA ZAIDI MD REPORT IS CONFIDENTIAL AND NOT TO BE RELEASED WITHOUT AUTHORIZATION [facility] [address], [place] [address] Signed valve cross-sectional areas only 1.14 cm2 representing moderate to severe aortic stenosis, of course one can hear his 3/6 systolic ejection murmur. I had asked him questions about his heart, he did not seem to be particularly forthcoming. However, he does have a pacemaker and he is paced in the atrium and ventricle. Other than that, I do not have any specific records of his heart. I did have our Internal Medicine Service see him as well. He simply does not meet criteria for surgery at [facility]. I explained this to Nina at the time of his admission and this is confirmed by the echocardiogram. In the meantime, we contacted [facility] last two days and arrangements had been made for him to be transported down to the [facility] in [place] for his ongoing care. He understands he will be much better served at a larger center where they have hand etcher, labor economics teacher, and critical care people available to him. He has expressed understanding and agrees above plan. MD SULAIMAN De La Cruz/JESIKAL /[id number] cc: [facility] in [place], [place] MD Connie Nelson MD Copies: SULTANA ZAIDI MD, ANDREW L MD ~ Electronically Signed By: CONNIE HAMMOND MD 02/17/19 0705 PATIENT NAME: NINA PINZON DISCHARGE SUMMARY DATE OF : 54 REPORT #: [id number] PHYSICIAN: CONNIE HAMMOND MD PCP: SULTANA ZAIDI MD REPORT IS CONFIDENTIAL AND NOT TO BE RELEASED WITHOUT AUTHORIZATION
== END 2019-02-16 16:00 | DRG 394 ==
LOC: ED 19:31 → MS 19:33
PROVIDERS: ADMIT Colon & Rectal Surgery
DX: K43.0 Incisional hernia with obstruction, without gangrene (principal); E87.1 Hypo-osmolality and hyponatremia; I13.0 Hypertensive heart and chronic kidney disease with heart failure and stage 1 through stage 4 chronic kidney disease, or unspecified chronic kidney disease; I50.22 Chronic systolic (congestive) heart failure; I25.5 Ischemic cardiomyopathy; N18.3 Chronic kidney disease, stage 3 (moderate); E11.22 Type 2 diabetes mellitus with diabetic chronic kidney disease; I27.20 Pulmonary hypertension, unspecified; G47.419 Narcolepsy without cataplexy; M79.7 Fibromyalgia; E78.00 Pure hypercholesterolemia, unspecified; E66.9 Obesity, unspecified; G47.33 Obstructive sleep apnea (adult) (pediatric); J45.909 Unspecified asthma, uncomplicated; K21.9 Gastro-esophageal reflux disease without esophagitis; N28.89 Other specified disorders of kidney and ureter; Z95.0 Presence of cardiac pacemaker; Z88.8 Allergy status to other drugs, medicaments and biological substances; Z88.6 Allergy status to analgesic agent; Z79.01 Long term (current) use of anticoagulants; Z79.4 Long term (current) use of insulin; Z79.51 Long term (current) use of inhaled steroids; Z79.899 Other long term (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; Z68.32 Body mass index [BMI] 32.0-32.9, adult
CPT/HCPCS: 36415; 74177; 80048; 80053; 81001; 83735; 84100; 84134; 84295; 85025; 93005; 93010; 94762; 96361; 96376; 99285-25; C9113; G0378; J1170; J1650; J1815; J2270; J2405; J2550; J3480; J7030; J7121; Q9967

== ENCOUNTER 2019-03-27 15:02 | Emergency (ER) | payer OTHER ==
[~2019-03-27] VITALS: Ht 170.2 cm; Wt 95.6 kg
[~2019-03-27 15:02] MED LIST changes: +NUPERCAINAL56.7 GM TOP; +ONDANSETRON ODT8 MG PO; +SELENIUM SULFI120 M1 TOP
--- OUTSIDE RECORDS SUMMARY | 2019-03-27 15:08 | XMS ---
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 Iftikhar VISIT COUNT (12 MO.) 3 MECCA Wan TOTAL 3 NOTE: Visits indicate total known visits. ED/UCC VISIT TRACKING (12 MO.) 03/27/2019 15:04 [facility] TYPE: Emergency COMPLAINT: - WOUND VAC CHANGE 02/14/2019 19:32 [facility] TYPE: Emergency COMPLAINT: - ABDOMINAL PAIN 09/21/2018 14:47 [facility] TYPE: Emergency COMPLAINT: - ABD PAIN INPATIENT VISIT TRACKING (12 MO.) 02/15/2019 06:48 [facility] TYPE: Medical Surgical COMPLAINT: - INCARCERATED INCISIONAL HERNIA W/BOWEL OBSTRUCTION DIAGNOSES: - 1 Type 2 diabetes mellitus w diabetic chronic kidney disease - correction (current) use of anticoagulants - Allergy status to analgesic agent status - Pure hypercholesterolemia, unspecified - Body mass index (BMI) 32.0-32.9, adult - Other long term care social worker (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 - Presence of cardiac pacemaker - Chronic systolic (congestive) heart failure - Narcolepsy without cataplexy - Obesity, unspecified - 1 Chronic kidney disease, stage 3 (moderate) - 1 Hyp hrt \T\ chr kdny dis w hrt fail and stg 1-4/unsp chr kdny - Fibromyalgia - Incisional hernia with obstruction, without gangrene - Gastro-esophageal reflux disease without esophagitis - Other specified disorders of kidney and ureter - Unspecified asthma, uncomplicated - Obstructive sleep apnea (adult) (pediatric) - Allergy status to oth drug/meds/biol subst status - correction (current) use of insulin - ocean transportation intermediary (current) use of inhaled steroids - Ischemic cardiomyopathy - Pulmonary hypertension, unspecified - Hypo-osmolality and hyponatremia 09/21/2018 20:[address] [facility] TYPE: Medical Surgical COMPLAINT: - INCARCERATED HERNIA DIAGNOSES: - Allergy status to analgesic agent status - Presence of aortocoronary bypass graft - correction (current) use of opiate analgesic - Heart failure, unspecified - 1 Type 2 diabetes mellitus with diabetic neuropathy, unsp - Allergy status to oth drug/meds/biol subst status - correction (current) use of antithrombotics/antiplatelets - ocean transportation intermediary (current) use of antithrombotics/antiplatelets - Hyperlipidemia, unspecified - Athscl heart disease of [place] coronary artery w/o ang pctrs - Unspecified asthma, uncomplicated - Other ascites - 1 Hyp hrt \T\ chr kdny dis w hrt fail and stg 1-4/unsp chr kdny - Presence of aortocoronary bypass graft - Heart failure, unspecified - ocean transportation intermediary (current) use of insulin - Allergy status to oth drug/meds/biol subst status - ocean transportation intermediary (current) use of inhaled steroids - Personal [...] 3 (moderate) - Athscl heart disease of [place] coronary artery w/o ang pctrs - Unspecified hearing loss, unspecified ear - ocean transportation intermediary (current) use of insulin - Other ascites - Presence of cardiac pacemaker - Other snf (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 - Gastro-esophageal reflux disease without esophagitis - Presence of cardiac pacemaker - 1 Type 2 diabetes mellitus w diabetic chronic kidney disease - Other long term care social worker (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 - Unspecified hearing loss, unspecified ear - 1 Chronic kidney disease, stage 3 (moderate) - ocean transportation intermediary (current) use of inhaled steroids - 1 Type 2 diabetes mellitus with diabetic neuropathy, unsp - correction (current) use of opiate analgesic - Hyperlipidemia, unspecified - 1 Type 2 diabetes mellitus w diabetic chronic kidney disease - Gastro-esophageal reflux disease without esophagitis [email or web address]
--- NOTE | 2019-03-27 16:36 | NUR ---
PT IS SEEN FOR WOUND VAC APPLICATION AND STAPLE REMOVAL. PT HAS 5 ARYAN REMAINING FROM HIS SURGERY HE HAD PRIOR TO THANKSGIVING THAT WERE REMOVED PRIOR TO REDRESSING THE WOUND AREA. THE WOUND BED HAS CLEAN, NON GRANLUATING TISSUE. THERE ARE SPECS OF BLACK WITHIN THE WOUND BED THAT ARE POTENTIALS PIECES OF BLACK FOAM RESIDUE.THE EDGES OF THE WOUND DO HAVE SIGNS OF BREAKDOWN FROM THE PREVIOUS SPONGE, WHICH APPARENTLY HAD BEEN IN PLACED FOR 13-14 DAYS WITHOUT CHANGING. THERE IS ALSO SIGNIFICANT SCAR TISSUE SURROUNDING THE WOUND. SKIN PREP IS APPLIED TO THE PERIWOUND SKIN. STRIPS OF DRAPE ARE CUT AND LINED AROUND THE WOUND. BLACK FOAM IS CUT TO FILL THE WOUND BED, PLACED INTO THE WOUND BED, THEN COVERED WITH DRAPE. A SMALL HOLE IS CUT IN THE CENTER OF THE FOAM AREA FOR THE TRACK PAD, WHICH IS PLACED AND CONNECTED TO THE WOUND VAC ITSELF. THE SUCTION IS TURNED ON AND IT SUCKS DOWN NICELY WITHOUT AN AUDIBLE LEAKS. PT AT THIS POINT DOES NOT HAVE FOLLOW UP CARE SETUP, HOWEVER, THE PT IS EDUCATED THAT [facility] [place], WE COULD HAVE HIS PCP HERE COSIGN THE ORDER FOR ALL FUTURE TREATMENT. THE SAME INFORMATION IS RELAYED TO DR. GUZMAN AND THE PT'S ER NURSE.
== END 2019-03-27 17:10 | disposition home or self-care (01) ==
LOC: ED 15:02
DX: Z48.01 Encounter for change or removal of surgical wound dressing (principal); N18.3 Chronic kidney disease, stage 3 (moderate); I50.9 Heart failure, unspecified; Z87.891 Personal history of nicotine dependence; Z90.49 Acquired absence of other specified parts of digestive tract; Z88.6 Allergy status to analgesic agent; Z88.8 Allergy status to other drugs, medicaments and biological substances; Z79.01 Long term (current) use of anticoagulants; Z79.4 Long term (current) use of insulin; Z79.899 Other long term (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
CPT/HCPCS: 99282

== ENCOUNTER 2019-10-26 10:14 | Inpatient (IN) | payer MEDICARE, OTHER ==
[~2019-10-26] VITALS: Ht 170.2 cm; Wt 94.3 kg
--- OUTSIDE RECORDS SUMMARY | ~2019-10-26 | XMS | Clinical Summary ---
Demographics + + + | Address | [address] [place] [address] | | | [place] [address] | + + + | Home Phone | | + + + | Preferred Language | Unknown | + + + | Marital Status | Single | + + + | Christianity Affiliation | Unknown | + + + | Race | Unknown | + + + | Ethnic Group | Unknown | + + + Author + + + | Author | [facility] | | | and [place] | + + + | Organization | [facility] | | | and [place] | + + + | Address | Unknown | + + + | Phone | Unavailable | + + + Care Team Providers + +------+ + | Care Competitive Intelligence Manager Name | Role | Phone | + +------+ + | Karena [place] | PCP | | + +------+ + Allergies + + + + + + | Active Allergy | Reactions | Severity | Noted | Comments | | | | | Date | | + + + + + + | Acetaminophen | Other (See Comments) | | 06/20/19 | Clarify with | | | | | 20 | patient. | + + + + + + | Atenolol | Other (See Comments) | | 06/20/19 | Numbness | | | | | 20 | | + + + + + + Medications Not on file Active Problems + + + | Problem | Noted Date | + + + | Pacemaker reprogramming/check | 07/28/2019 | + + + | Pacemaker, Dual Chamber, [facility] [employer], 07/12/2009 [facility] | 07/28/2019 | + + + + + | Overview: Indication: | + + + + + | Sick sinus syndrome (HCC) with symptomatic sinus pauses | 07/28/2019 | + + + + + | Overview: S/P Permanent Pacemaker Placement 07/12/2009 by | | Colin Bañuelos MD [facility] | + + +--------+ + | Murmur | 06/20/2019 | +--------+ + + + | Overview: Echocardiogram April 2017 shows there is mild | | aortic stenosis. There is mild mitral regurgitation. The left | | ventricle chamber is normal in size. There is mild left | | ventricular hypertrophy. Left ventricular systolic function is | | moderately reduced. The ejection fraction estimate is 35%. The | | right ventricle is normal in size and function. LV chamber size | | is a bit smaller that on previous echocardiogram. Echocardiogram | | April 2018 shows the left ventricle is mildly dilated, mild | | concentric hypertrophy and severely impaired systolic function EF | | 20-25%. The right ventricle is mildly enlarged with impaired | | systolic function. Moderate to severe aortic stenosis with | | peak/mean pressure gradient of 22.57mmHg / 13.78mmHg, the aortic | | valve area by continuity equation is 1.1cm . There is no | | pericardial effusion.Echocardiogram January 2019 shows the left | | ventricle chamber size and wall thickness are normal. The | | ejection fraction estimate is 40 +/- 5%. The right ventricle is | | normal size. Right ventricular systolic function is at the lowere | | limits of normal or mildly reduced. There is moderate aortic | | stenosis. | + + + + + | Unspecified atrial fibrillation | 06/20/2019 | + + + | Fibromyalgia | | + + + | Heart failure | | + + + Social History + +-------+ +--------+------+ | Tobacco Use | Types | Packs/Day | Years | Date | | | | | Used | | + +-------+ +--------+------+ | Former Smoker | | | | | + +-------+ +--------+------+ + + + | Sex Assigned at | Date Recorded | | | | + + + | Not on file | | + + + Last Filed Vital Signs Not on file Plan of Treatment +--------+---------+ + + + | Date | Type | Specialty | Care Team | Description | +--------+---------+ + + + | 11/28/ | Office | Cardiology | David Carter | | | 2019 | Visit | | MD Yosvany [address] | | | | | | [place] [facility] | | | | | | [place] [address] | | | | | | [phone] | | | | | | | | +--------+---------+ + + + + + + + + | Health Maintenance | Due Date | Last | Comments | | | | Done | | + + + + + | Hepatitis C | | | | | Screening | 3 | | | + + + + + | Colorectal Cancer | | | | | Screening | 3 | | | | (Colonoscopy) | | | | + + + + + | Vaccine: Zoster (1 | | | | | of 2) | 9 | | | + + + + + | AAA Screening | | | | | | 8 | | | + + + + + | Vaccine: | | | | | Pneumococcal 65+ (1 | 8 | | | | of 1 - PPSV23) | | | | + + + + + | Adult Annual | | | | | Wellness Visit | 0 | | | + + + + + | Vaccine: Influenza | | 04/25/19 | | | (#1) | 0 | 19, | | | | | 01/16/20 | | | | | 17, | | | | | 07/23/19 | | | | | 17, | | | | | Addition | | | | | al | | | | | history | | | | | exists | | + + + + + | Vaccine: | | 05/28/19 | | | Dtap/Tdap/Td (2 - | 3 | 13, | | | Tdap) | | 05/28/19 | | | | | 13 | | + + + + + Implants + +--------+------+ +--------+--------+--------+ | Implanted | Type | Area | Manufacture | Device | Shelf | Model | | | | | r | | Expira | / | | | | | | Identi | tion | Serial | | | | | | fier | Date | / Lot | + +--------+------+ +--------+--------+--------+ | Ra Lead-07/12/2009Implanted: | Lead | | [facility] DIANA | | | [id number] | | Qty: 1 on 07/12/2009 by | | | MEDICAL - | | | | | Colin Bañuelos MD | | | STJU | | | /[id number] | | | | | | | | [id number] / | + +--------+------+ +--------+--------+--------+ | Rv Lead-07/12/2009Implanted: | Lead | | [facility] [employer]NA | | | 8 | | Qty: 1 on 07/12/2009 by | | | MEDICAL - | | | TC | | Colin Bañuelos MD | | | STJU | | | /[id number] | | | | | | | | [id number] / | + +--------+------+ +--------+--------+--------+ | Pacemaker,Dual | Pacema | | [facility] [employer] | | | ACCENT | | Chamber-07/12/2009Implanted: | ker | | MEDICAL - | | | DR | | Qty: 1 on 07/12/2009 by | | | STJU | | | 2110 | | Colin Bañuelos MD | | | | | | /[id number] | | | | | | | | 09 / | + +--------+------+ +--------+--------+--------+ Results Not on filefrom Last 3 Months Insurance + +--------+ +--------+-------+---------+--------+ | Payer | Benefi | Subscriber | Effect | Phone | Address | Type | | | t Plan | ID | xiang | | | | | | / | | Dates | | | | | | Group | | | | | | + +--------+ +--------+-------+---------+--------+ | [employer] [place] | [id number] | 04/03/19 | | | Indemn | | | COMMUN | | 20-Pre | | | ity | | | ITY | | sent | | | | | | CARE | | | | | | + +--------+ +--------+-------+---------+--------+ + +--------+ +--------+ + + | Guarantor Name | Accoun | Relation to | Date | Phone | Billing Address | | | t Type | Patient | of | | | | | | | | | | + +--------+ +--------+ + + | Velasquez Bledsoe | Person | Self [birth year] | [address] | | | al/Fam | | 1951 | [phone] | [address] [place] | | | [place] | | | 0 (Home) | [phone] | + +--------+ +--------+ + + Advance Directives + + + + + | Type | Date Recorded | Patient | Explanation | | | | Waste Transportation Technician | | + + + + + | Power of | | | | | Content Developer | | | | + + + + + | Advance | | | | | Directive | | | | + + + + +"
--- OUTSIDE RECORDS SUMMARY | ~2019-10-26 | XMS | Encounter Summary ---
Demographics + + + | Address | [address] | | | [place] [address] | + + + | Home Phone | | + + + | Preferred Language | Unknown | + + + | Marital Status | Single | + + + | Sabianist Affiliation | Unknown | + + + | Race | Unknown | + + + | Ethnic Group | Unknown | + + + Author + + + | Author | [facility] | | | and [place] | + + + | Organization | [facility] | | | and [place] | + + + | Address | Unknown | + + + | Phone | Unavailable | + + + Care Team Providers + +------+ + | Care Environmental Issues Instructor Name | Role | Phone | + +------+ + | Bisi Calloway MD | PCP | | + +------+ + Encounter Details +--------+ + + + + | Date | Type | Department | Care Team | Description | +--------+ + + + + | 06/27/ | Abstract | [facility] | David Carter | | | 2019 | | [address] | MD [address]os[address]any [address] | | | | | [place], | [address] [place] | | | | | [place] [address] | [place] [address] | | | | | [phone] | [phone] | | | | | | | | +--------+ + + + + Social History + +-------+ [...] on file | | + + + documented as of this encounter Plan of Treatment +--------+---------+ + + + | Date | Type | Specialty | Care Team | Description | +--------+---------+ + + + | 11/28/ | Office | Cardiology | David Carter | | | 2020 | Visit | | MD Yos[address]any [address] | | | | | | [place] | | | | | | [place] [address] | | | | | | [phone] | | | | | | | | +--------+---------+ + + + documented as of this encounter Procedures + +--------+ + + + | Procedure Name | Priori | Date/Time | Associated Diagnosis | Comments | | | ty | | | | + +--------+ + + + | EXTERNAL LAB: | Routin | 04/25/2018 | | Results for this | | ALBUMIN | e | | | procedure are in the | | | | | | results section. | + +--------+ + + + | EXTERNAL LAB: | Routin | 04/25/2018 | | Results for this | | PROTEIN, TOTAL | e | | | procedure are in the | | | | | | results section. | + +--------+ + + + | EXTERNAL LAB: CBC | Routin | 04/25/2018 | | Results for this | | | e | | | procedure are in the | | | | | | results section. | + +--------+ + + + | EXTERNAL LAB: CBC | Routin | 04/25/2018 | | Results for this | | | e | | | procedure are in the | | | | | | results section. | + +--------+ + + + | EXTERNAL LAB: | Routin | 04/25/2018 | | Results for this | | PROTIME INR | e | | | procedure are in the | | | | | | results section. | + +--------+ + + + | CBC WITH | Routin | 04/25/2018 | | Results for this | | DIFFERENTIAL | e | | | procedure are in the | | | | | | results section. | + +--------+ + + + documented in this encounter Results CBC with Differential (04/25/2018) + + + + + + | Component | Value | Ref Range | Performed | Pathologist | | | | | At | Signature | + + + + + + | MCH | 28.0 | 27.0 - 31.0 pg | | | + + + + + + | MCHC | 31.0 (A) | 32.0 - 36.0 | | | | | | g/dL | | | + + + + + + | % Basophils | 0.2 | 0.0 - 2.0 % | | | + + + + + + + + | Specimen | + + | Blood | + + External Lab: CBC (04/25/2018) + + + + + + | Component | Value | Ref Range | Performed | Pathologist | | | | | At | Signature | + + + + + + | PLT, | 204 | 150 - 400 | | | | External | | | | | + + + + + + | Neutrophils | 75.0 (A) | 44 - 74 | | | | %, | | | | | | External | | | | | + + + + + + | Lymphocytes | 16.2 | 15 - 42 | | | | %, | | | | | | External | | | | | + + + + + + | Monocytes | 7.7 | 4 - 13 | | | | %, External | | | | | + + + + + + | Eosinophils | 0.7 | 0 - 7 | | | | %, | | | | | | External | | | | | + + + + + + | Neutrophils | 6.2 | 1.2 - 7 | | | | , Absolute, | | | | | | External | | | | | + + + + + + | Lymphocytes | 1.4 | 0.6 - 3.4 | | | | , Absolute, | | | | | | External | | | | | + + + + + + | Monocytes, | 0.6 | 0.2 - 1 | | | | Absolute, | | | | | | External | | | | | + + + + + + | Eosinophils | 0.1 | 0 - 0.5 | | | | , Absolute | | | | | + + + + + + | Basophils, | 0.0 | 0 - 0.2 | | | | Absolute | | | | | + + + + + + External Lab: Protime INR (04/25/2018) + + + + + + | Component | Value | Ref Range | Performed | Pathologist | | | | | At | Signature | + + + + + + | INR, | 1.3 (A) | 2 - 3 | | | | External | | | | | + + + + + + | PT, | 16.5 (A) | 12.3 - 14.7 | | | | External | | | | | + + + + + + + + | Specimen | + + | Blood | + + External Lab: Albumin (04/25/2018) + +-------+ + + + | Component | Value | Ref Range | Performed | Pathologist | | | | | At | Signature | + +-------+ + + + | Albumin, | 3.6 | 3.5 - 5 | | | | External | | | | | + +-------+ + + + External Lab: Protein, Total (04/25/2018) + +---------+ + + + | Component | Value | Ref Range | Performed | Pathologist | | | | | At | Signature | + +---------+ + + + | Protein, | 6.4 (A) | 6.5 - 8.2 | | | | Total, | | | | | | External | | | | | + +---------+ + + + External Lab: CBC (04/25/2018) + +-------+ + + + | Component | Value | Ref Range | Performed | Pathologist | | | | | At | Signature | + +-------+ + + + | WBC, | 8.3 | 3 - 10.6 | | | | External | | | | | + +-------+ + + + | HGB, | 14.8 | 11.8 - 17.1 | | | | External | | | | | + +-------+ + + + | HCT, | 47.8 | 36 - 51 | | | | External | | | | | + +-------+ + + + | RBC, | 5.28 | 3.86 - 5.7 | | | | External | | | | | + +-------+ + + + | MCV, | 91 | 81 - 102 | | | | External | | | | | + +-------+ + + + | RDW, | 15.7 | | | | | External | | | | | + +-------+ + + + documented in this encounter Visit Diagnoses Not on filedocumented in this encounter"
--- OUTSIDE RECORDS SUMMARY | ~2019-10-26 | XMS | Encounter Summary ---
Demographics + + + | Address | [address] | | | [place] [address] | + + + | Home Phone | | + + + | Preferred Language | Unknown | + + + | Marital Status | Single | + + + | Yazidi Affiliation | Unknown | + + + | Race | Unknown | + + + | Ethnic Group | Unknown | + + + Author + + + | Author | [facility] | | | and [place] | + + + | Organization | [facility] | | | and [place] | + + + | Address | Unknown | + + + | Phone | Unavailable | + + + Care Team Providers + +------+ + | Care Clock Mechanic Name | Role | Phone | + +------+ + | Karena [place] | PCP | | + +------+ + Reason for Visit + +--------+ + | Reason | Onset | Comments | | | Date | | + +--------+ + | Appointment Question | 06/19/ | | | | 2019 | | + +--------+ + Encounter Details +--------+ + + + + | Date | Type | Department | Care Team | Description | +--------+ + + + + | 06/19/ | Telephone | [facility] | David Carter | Appointment Question | | 2019 | | CARDIOLOGY [address] | MD [address]os[address]any [address] | | | | | [place], | [address] [place] | | | | | [place] [address] | [place] [address] | | | | | [phone] | [phone] | | | | | | | [...] + + documented as of this encounter Miscellaneous Notes Telephone Encounter - Gisselle Crouch RN - 07/28/2019 12:44 PM PDTSpoke with patient and he reports he has a [employer] Nick Pacemaker which was placed by the [facility]. Requested records from [facility] and [facility]. Electronically signed by: Gisselle Crouch RN 07/28/2019 12:45 PM elephone Encounter - Millie Maddox Hospital Clerk - 06/20/2019 9:16 AM PDTCalled patient to ask questions reg arding previous cardiology care. There is a question of whether patient has a pacemaker, he would need to be scheduled for a device check. Also, unsure of where he previously had cardi ac care. Left VM for callback. Patient scheduled 07/04/2019. Electronically signed by Radha Cuevas Assistant at 0 06/20/2019 9:18 AM PDTdocumented in this encounter Plan of Treatment +--------+---------+ + + + | Date | Type | Specialty | Care Team | Description | +--------+---------+ + + + | 11/28/ | Office | Cardiology | David Carter | | | 2019 | Visit | | MD Yosvany [address] | | | | | | [place] [facility] | | | | | | [place] [address] | | | | | | [phone] | | | | | | | | +--------+---------+ + + + documented as of this encounter Visit Diagnoses + + | Diagnosis | + + | Pacemaker reprogramming/check Fitting and adjustment of cardiac pacemaker | + + | Pacemaker, Dual Chamber, [employer] Nick, 07/12/2009 [facility] Cardiac pacemaker in situ | + + documented in this encounter"
--- OUTSIDE RECORDS SUMMARY | ~2019-10-26 | XMS | Encounter Summary ---
Demographics + + + | Address | [address] | | | [place] [address] | + + + | Home Phone | | + + + | Preferred Language | Unknown | + + + | Marital Status | Single | + + + | Christian Affiliation | Unknown | + + + | Race | Unknown | + + + | Ethnic Group | Unknown | + + + Author + + + | Author | [facility] | | | and [place] | + + + | Organization | [facility] | | | and [place] | + + + | Address | Unknown | + + + | Phone | Unavailable | + + + Care Team Providers + +------+ + | Care Slp Name | Role | Phone | + +------+ + PCP | Unavailable | + +------+ + Encounter Details +--------+ + + + + | Date | Type | Department | Care Team | Description | +--------+ + + + + | 05/18/ | Orders Only | [facility] | jN Pierre | | | 2019 | | CONVERSION [address] | MD [address] [place] | | | | | [place] | [place] | | | | | [place] | [place] [address] | | | | | [address] | [phone] | | | | | [phone] | | | +--------+ + + + [...] | | | | | [place] [address] | | | | | | [phone] | | | | | | | [...] | | | 0.38 m/s MV Dec Graham: 4.09 m/s2 MV DecT: 170.49 ms MV [...] RV s': | | | 0.06 m/s Composer Teaching Artist: GARETT Authenticated by: Safia Cullen | | | Report Date/Time: 05-18-2018 19:30:54 | | + + + + + | Procedure Note | + + | Arya East - 11/17/2018 2:01 PM PDT Patient Name: Velasquez BledsoeAnitra of | | : 1950 Performing Physician: Safia Osman [facility] INDICATIONS------ | | -----MURMUR CONCLUSIONS 1. The [...] cmLVPWd: | | 1.21 cmLVOT Area: 3.20 [id number] Diam: 2.02 cm%FS: 15.28 %EF(Teich): 31.68 | [...] mlLAESV Index (A-L): 52.52 ml/m2LAAs A2C: 26.69 [id number] A-L A2C: 99.77 | | mlLALs A2C: 6.06 cmLAAs A4C: 27.03 [id number] A-L A4C: 104.24 mlLALs A4C: 5.94 | | cmRAAs: 21.85 dh9LYPJY A-L: 81.04 mlRAESV MOD: 79.12 mlRALs: 5.00 cmTAPSE: | | 1.60 cmAV maxP.56 mmHgAV meanP.77 mmHgAV Vmax: 2.37 m/Andrew Vmean: 1.78 | | m/Andrew VTI: 46.67 cmAVA Vmax: 1.05 cm2AVA (VTI): 1.14 fl3SVMQ Vmax: 0.00 | | cm2/m2AVAI (VTI): 0.00 cm2/m2LVOT maxP.43 mmHgLVOT meanP.35 mmHgLVSI Dopp: | | 27.30 ml/m2LVSV Dopp: 53.51 mlLVOT Vmax: 0.78 m/sLVOT Vmean: 0.55 m/sLVOT VTI: | | 16.68 cmMV A Chavez: 0.38 m/sMV Dec Graham: 4.09 m/s2MV DecT: 170.49 msMV E Chavez: | | 0.69 m/sMV E/A Ratio: 1.80MV PHT: 49.44 msMVA By PHT: 4.44 sp7Uizvnx e': 0.02 | | m/sSeptal E/e': 23.37Lateral e': 0.09 m/sLateral E/e': 7.21RAP: 5 mmHgRVSP: | | 62.19 mmHgTR maxP.19 mmHgTR Vmax: 3.78 m/sRV s': 0.06 m/s Composer Teaching Artist: | | DBSAuthenticated by: Safia Gh[facility] Date/Time: 05-18-2018 19:30:54 IMPRESSION: 1. | | [...] A Chavez: 0.38 m/s | |MV Dec Graham: 4.09 m/s2 | |MV DecT: 170.49 ms [...] |RV s': 0.06 m/s | | | |Composer Teaching Artist: DBS | |Authenticated by: Safia Cullen | [...]
--- OUTSIDE RECORDS SUMMARY | ~2019-10-26 | XMS | Encounter Summary ---
Demographics + + + | Address | [address] | | | [place] [address] | + + + | Home Phone | | + + + | Preferred Language | Unknown | + + + | Marital Status | Single | + + + | Jain Affiliation | Unknown | + + + | Race | Unknown | + + + | Ethnic Group | Unknown | + + + Author + + + | Author | [facility] | | | and [place] | + + + | Organization | [facility] | | | and [place] | + + + | Address | Unknown | + + + | Phone | Unavailable | + + + Care Team Providers + +------+ + | Care Showroom Manager Name | Role | Phone | [...] | | [place] | [place] [address] | | | | | [address] | [phone] | | | | | [phone] | | | +--------+ + + + [...] | | | | | [place] [address] | | | | | | [phone] | | | | | | | [...] | | | 0.38 m/s MV Dec Cannon: 4.09 m/s2 MV DecT: 170.49 ms MV [...] RV s': | | | 0.06 m/s Concrete Tile Machine Operator: GARETT Authenticated by: Safia Cullen | | | Report Date/Time: 05-18-2018 19:30:54 | | + + + + + | Procedure Note | + + | Arya East - 11/17/2018 2:01 PM PDT Patient Name: Velasquez BledsoeAnitra of | | : 1950 Performing Physician: Safia Osman [facility] INDICATIONS------ | | -----MURMUR CONCLUSIONS 1. The [...] cmLVPWd: | | 1.21 cmLVOT Area: 3.20 [id number] Diam: 2.02 cm%FS: 15.28 %EF(Teich): 31.68 | [...] mlLAESV Index (A-L): 52.52 ml/m2LAAs A2C: 26.69 [id number] A-L A2C: 99.77 | | mlLALs A2C: 6.06 cmLAAs A4C: 27.03 nq1GAGLP A-L A4C: 104.24 mlLALs A4C: 5.94 | | cmRAAs: 21.85 fu3QCLCF A-L: 81.04 mlRAESV MOD: 79.12 mlRALs: 5.00 cmTAPSE: | | 1.60 cmAV maxP.56 mmHgAV meanP.77 mmHgAV Vmax: 2.37 m/Andrew Vmean: 1.78 | | m/Andrew VTI: 46.67 cmAVA Vmax: 1.05 cm2AVA (VTI): 1.14 dn6VWYE Vmax: 0.00 | | cm2/m2AVAI (VTI): 0.00 cm2/m2LVOT maxP.43 mmHgLVOT meanP.35 mmHgLVSI Dopp: | | 27.30 ml/m2LVSV Dopp: 53.51 mlLVOT Vmax: 0.78 m/sLVOT Vmean: 0.55 m/sLVOT VTI: | | 16.68 cmMV A Chavez: 0.38 m/sMV Dec Cannon: 4.09 m/s2MV DecT: 170.49 msMV E Chavez: | | 0.69 m/sMV E/A Ratio: 1.80MV PHT: 49.44 msMVA By PHT: 4.44 db7Gpcygt e': 0.02 | | m/sSeptal E/e': 23.37Lateral e': 0.09 m/sLateral E/e': 7.21RAP: 5 mmHgRVSP: | | 62.19 mmHgTR maxP.19 mmHgTR Vmax: 3.78 m/sRV s': 0.06 m/s Concrete Tile Machine Operator: | | DBSAuthenticated by: Safia Ghoshgeneral [facility] Date/Time: 05-18-2018 19:30:54 IMPRESSION: 1. | | [...] A Chavez: 0.38 m/s | |MV Dec Cannon: 4.09 m/s2 | |MV DecT: 170.49 ms [...] |RV s': 0.06 m/s | | | |Concrete Tile Machine Operator: DBS | |Authenticated by: Safia Cullen | [...]
--- OUTSIDE RECORDS SUMMARY | ~2019-10-26 | XMS | Encounter Summary ---
Demographics + + + | Address | [address] | | | [place] [address] | + + + | Home Phone | | + + + | Preferred Language | Unknown | + + + | Marital Status | Single | + + + | Rastafarian Affiliation | Unknown | + + + | Race | Unknown | + + + | Ethnic Group | Unknown | + + + Author + + + | Author | [facility] | | | and [place] | + + + | Organization | [facility] | | | and [place] | + + + | Address | Unknown | + + + | Phone | Unavailable | + + + Care Team Providers + +------+ + | Care Blending Machine Feeder Name | Role | Phone | + [...] + + | 06/19/ | Telephone | [facility] | David Carter | Appointment Question | | 2019 | | CARDIOLOGY [address] | MD [address]any [address] | | | | | [place], | [address] [place] | | | | | [place] [address] | [place] [address] | | | | | [phone] | [phone] | | | | | | | [...] Nick Pacemaker which was placed by the [facility]. Requested records from [facility]. Electronically signed by: Gisselle Crouch RN 07/28/2019 12:45 PM elephone Encounter - Millie Maddox Observation Assistant - 06/20/2019 9:16 AM PDTCalled patient to [...] | | | | | [address] [facility] | | | | | | [place] [address] | | | | | | [phone] | | | | | | | | +--------+---------+ + + + documented as of this encounter Visit Diagnoses + + | Diagnosis | + + | Pacemaker reprogramming/check Fitting and adjustment of cardiac pacemaker | + + | Pacemaker, Dual Chamber, [employer] Nick, 07/12/2009 [facility] Cardiac pacemaker in situ | + + documented in this encounter"
--- OUTSIDE RECORDS SUMMARY | ~2019-10-26 | XMS | Clinical Summary ---
Demographics + + + | Address | [address] [place] [address] | | | [place] [address] | + + + | Home Phone | | + + + | Preferred Language | Unknown | + + + | Marital Status | Single | + + + | Jew Affiliation | Unknown | + + + | Race | Unknown | + + + | Ethnic Group | Unknown | + + + Author + + + | Author | [facility] | | | and [place] | + + + | Organization | [facility] | | | and [place] | + + + | Address | Unknown | + + + | Phone | Unavailable | + + + Care Team Providers + +------+ + | Care Snowmaker Name | Role | Phone | + [...] | Pacemaker, Dual Chamber, [facility], 07/12/2009 [facility] | 07/28/2019 | + + + + + | Overview: Indication: | + + + + + | Sick sinus syndrome (HCC) with symptomatic sinus pauses | 07/28/2019 | + + + + + | Overview: S/P Permanent Pacemaker Placement 07/12/2009 by | | Colin Bañuelos MD [facility] | + + +--------+ + | [...] | | | | | [address] [facility] | | | | | | [place] [address] | | | | | | [phone] | | | | | | | [...] | Pacemaker,Dual | Pacema | | [facility] DIANA | | | ACCENT | | Chamber-07/12/2009Implanted: | ker | | MEDICAL - | | | DR | | Qty: 1 on 07/12/2009 by | | | STJU | | | [phone] | | Colin Bañuelos MD | | | | | | /[phone] | | | | | | | [...] +--------+-------+---------+--------+ | [facility] [place] | [phone] | 04/03/19 | | | Indemn | [...] | | al/Fam | | 1951 | [phone] | [address] | | | rhina | | | 0 (Home) | [phone] | + +--------+ +--------+ + + Advance Directives + + + + + | Type | Date Recorded | Patient | Explanation | | | | [employer] Developer | | + + + + + | Power of | | | | | Food Vendor | | | | + + + + + | Advance | | | | | Directive | | | | + + + + +"
--- OUTSIDE RECORDS SUMMARY | ~2019-10-26 | XMS | Encounter Summary ---
Demographics + + + | Address | [address] | | | [place] [address] | + + + | Home Phone | | + + + | Preferred Language | Unknown | + + + | Marital Status | Single | + + + | Buddhist Affiliation | Unknown | + + + | Race | Unknown | + + + | Ethnic Group | Unknown | + + + Author + + + | Author | [facility] | | | and [place] | + + + | Organization | [facility] | | | and [place] | + + + | Address | Unknown | + + + | Phone | Unavailable | + + + Care Team Providers + +------+ + | Care Kaitara Taraka Name | Role | Phone | + [...] [address] | | | | [place], | [address] [place] | | | | | [place] [address] | [place] [address] | | | | | [phone] | [phone] | | | | | | | [...] | | | | | [place] [address] | | | | | | [phone] | | | | | | | [...]
[~2019-10-26 10:14] MED LIST changes: +ONDANSETRON HCL8 MG PO; -ONDANSETRON ODT8 MG PO; -VIAGRA100 MG PO; +VIAGRA50 MG PO
--- OUTSIDE RECORDS SUMMARY | 2019-10-26 10:18 | XMS ---
PreManage Notification: NINA PINZON Security Shipping Hand Events No recent Security Events currently on file CRITERIA MET - JESSICAP CARE PROVIDERS Name Unknown Shelter Facility [facility]: [phone] [facility] PHONE: Unknown Ten has no Care Guidelines for this patient. EBrady VISIT COUNT (12 MO.) 3 MECCA Wan TOTAL 3 NOTE: Visits indicate total known visits. ED/UCC VISIT TRACKING (12 MO.) 10/26/2019 10:15 [facility] TYPE: Emergency COMPLAINT: - WEAKNESS 03/27/2019 15:04 [facility] TYPE: Emergency COMPLAINT: - WOUND VAC CHANGE DIAGNOSES: - half-way (current) use of insulin - Chronic kidney disease, stage 3 (moderate) - Other manager terminal (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 - Encounter for change or removal of surgical wound dressing - Allergy status to analgesic agent status - Personal history of nicotine dependence - Allergy status to other drugs, medicaments and biological sub - Heart failure, unspecified - half-way (current) use of anticoagulants - Acquired absence of other specified parts of digestive tract 02/14/2019 19:32 [facility] TYPE: Emergency COMPLAINT: - ABDOMINAL PAIN INPATIENT VISIT TRACKING (12 MO.) 02/15/2019 06:48 [facility] TYPE: Medical Surgical COMPLAINT: - INCARCERATED INCISIONAL HERNIA W/BOWEL OBSTRUCTION DIAGNOSES: - Type 2 diabetes mellitus with diabetic chronic kidney disease - half-way (current) use of anticoagulants - Allergy status to analgesic agent status - Pure hypercholesterolemia, unspecified - Body mass index (BMI) 32.0-32.9, adult - Other residential (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 - Presence of cardiac pacemaker - Chronic systolic (congestive) heart failure - Narcolepsy without cataplexy - Obesity, unspecified - Chronic kidney disease, stage 3 (moderate) - Hypertensive heart and chronic kidney disease with heart fail - Fibromyalgia - Incisional hernia with obstruction, without gangrene - Gastro-esophageal reflux disease without esophagitis - Other specified disorders of kidney and ureter - Unspecified asthma, uncomplicated - Obstructive sleep apnea (adult) (pediatric) - Allergy status to other drugs, medicaments and biological sub - local intermodal truck driver (current) use of insulin - local intermodal truck driver (current) use of inhaled steroids - Ischemic cardiomyopathy - Pulmonary hypertension, unspecified - Hypo-osmolality and hyponatremia [email or web address]
--- NOTE | 2019-10-26 20:40 | NUR ---
PT ARRIVED TO ROOM 126 AT 2000 VIA STRETCHER, PT ABLE TO STAND TO TRANSFER TO BED. PT IS ALERT/ORIENTED, COMPLAINS OF RLQ PAIN THAT HE STATES COMES AND GOES. LUNGS CLEAR, RA. HR REGULAR, PACED, TACHY IN 110'S. BOWEL TONES ACTIVE, REPORTS MILD NAUSEA AT THIS TIME, BUT IS AWARE IT IS NOT YET TIME FOR ANOTHER DOSE OF ZOFRAN. BLE ARE EDEMATOUS: 4+ IN FEET, 3+ IN LOWER LEGS, WEEPING WITH SOME OPEN BLISTERS AND SOME SCABS PRESENT. OLD SCARS NOTED TO LEFT FOREARM AND TO CHEST FROM PREVIOUS BYPASS AND TO RLQ FROM PREVIOUS HERNIA REPAIRS. REDNESS NOTED TO BILATERAL GROIN FOLDS, N.I.O. FOR NYSTATIN TO BE PLACED. IV TO RIGHT AC PATENT AND INTACT. IVF STARTED PER ORDERS. CB, 9 UNITS SLIDING SCALE AND 30 UNITS LANTUS ADMINISTERED. CHUNG IN PLACE DRAINING FREELY. ICE WATER PROVIDED AND PT INSTRUCTED TO USE CALL LIGHT.
--- NOTE | 2019-10-26 21:07 | EKG ---
[facility] [address] [place] [address] Signed Atrial-sensed ventricular-paced rhythm Abnormal ECG When compared with ECG of 15-FEB-2019 10:33, Vent. rate has increased BY 59 BPM Confirmed by JOSH LEVIN DO ([id number]) on 10/26/2019 9:07:27 PM Electronically Signed By: JOSH LEVIN DO 10/26/192106 PATIENT NAME: JEROMYNINA Electrocardiogram DATE OF : 54 PHYSICIAN: JOSH LEVIN DO REPORT #: [id number] REPORT IS CONFIDENTIAL AND NOT TO BE RELEASED WITHOUT AUTHORIZATION
--- NOTE | 2019-10-26 21:50 | NUR ---
PT NAUSEATED WITH DRY HEAVES. DR. LEVIN CALLED AND ORDER RECEIVED FOR PRN PHENERGAN AND SIMETHICONE; ADMINISTERED AT THIS TIME.
--- NOTE | 2019-10-26 22:00 | NUR ---
DR. LEVIN IN UNIT AT THIS TIME TO CHECK IN ON PT.
--- NOTE | 2019-10-26 23:25 | NUR ---
PT RESTLESS, ATTEMPTS TO EXIT BED STATING "I KNOW I'M NOT SUPPOSED TO DO THIS ALONE, BUT I CAN'T STAY IN THIS BED." PT ASSISTED TO CHAIR. PT APPEARS PALE AND REMAINS TACHYCARDIC IN THE 120'S. DR. LEVIN CALLED AND UPDATED ON CONCERNS OF LOW UO AND GENERAL APPEARANCE. ORDER RECEIVED FOR 60MG IV LASIX AND TO D/C THE IVF; BOTH DONE AT THIS TIME. ALSO RECEIVED AN ORDER FOR AN ADDITIONAL 50MG PO TRAZODONE FOR A TOTAL OF 100MG; PT REQUESTED TO ONLY TAKE 50MG AT THIS TIME.
--- NOTE | 2019-10-27 | NUR ---
ASSESSMENT COMPLETED. PT DENIES PAIN AT THIS TIME, BUT REMAINS RESTLESS. LUNGS REMAIN CLEAR, RA. HR REMAINS TACHY IN 120'S. BOWEL TONES SOMEWHAT HYPOACTIVE. CHUNG PATENT, UO RESPONDING TO THE LASIX. IV DRESSING CHANGED, REMAINS SALINE LOCKED. PT ASSISTED BACK TO BED, SIDE RAILS UP FOR SAFETY. ATTEMPTED TO SET BED ALARM, BUT IT IS NOT FUNCTIONING.
--- NOTE | 2019-10-27 00:40 | NUR ---
PT RESTLESS, ADDITIONAL 50MG PO TRAZODONE GIVEN. PT REQUESTS 1/4 OF HIS SANDWICH FROM EARLIER.
--- NOTE | 2019-10-27 01:20 | NUR ---
PT FINISHED HIS 04/01 SANDWICH, BUT BECAME NAUSEATED, NO EMESIS. PRN ZOFRAN ADMINISTERED.
--- NOTE | 2019-10-27 04:10 | NUR ---
ASSESSMENT COMPLETED. PT IS LESS DROWSY, REPORTS OCCASIONAL RLQ PAIN, STATES IT IS TOLERABLE AT THIS TIME. LUNGS REMAIN CLEAR, RA. HR REGULAR, RATE 80-90'S AT REST, INCREASES TO 120-130 WITH ACTIVITY. BOWEL TONES ACTIVE, REPORTS MILD NAUSEA, TOLERABLE AT THIS TIME. EDEMA TO BLE UNCHANGED AT THIS TIME, CONTINUES TO WEEP. IV INTACT, SALINE LOCKED. PT REPORTS CONCERN OF NEEDING POTASSIUM REPLACEMENT AFTER RECEIVING LASIX DOSE. ASSURED PT THAT WE WILL CHECK HIS LABS THIS MORNING AND OFFERED TO GET HIM A BANANA IN THE MEAN TIME. PT ALSO ASSISTED TO STAND AND HE PERFORMED SOME CALF STRETCHES. CHUNG REMAINS PATENT, DRAINING FREELY. NO FURTHE REQUESTS AT THIS TIME, SIDE RAILS UP FOR SAFETY BED ALARM IS NOT FUNCTIONING.
--- NOTE | 2019-10-27 06:19 | NUR ---
PT REQUESTED NAUSEA MEDICATION. 6.25MG IV PHENERGAN GIVEN SINCE PT BECAME PRETTY DROWSY AFTER LAST DOSE OF 12.5MG. BREAKFAST ORDER CALLED TO KITCHEN. FRESH ICE WATER PROVIDED.
--- NOTE | 2019-10-27 07:30 | NUR ---
PATIENT SHIFT REPORT RECIEVED FROM AUDITOR/QUALITY RN. PATIENT RESTING IN BED AT THIS TIME. PATIENT CALLS APPROPRIATELY. WILL CONTINUE TO CLOSELY MONITOR.
--- NOTE | 2019-10-27 09:45 | NUR ---
PATIENT RESTING IN BED AT THIS TIME. THIS RN HAS BEEN IN MULTIPLE TIMES TO AM TO ASSIST PATIENT. PATIENT CONTINUES TO CALL REPEATEDLY FOR LITTLE THINGS. PHYSICAL THERAPY IN NOW TO SEE PATIENT AND ASSIST HIM UP TO THE CHAIR. PATIENT AGREEABLE TO PLAN OF CARE. UPDATED THAT PATIENTS HR IS UP AND THAT THIS RN DOES NOT WANT HIM DOING STRENUOUS ACTIVITY. PATIENTS ASSESSMENT COMPLETED. PATIENTS BREATH SOUNDS CLEAR AND PATIENT IS ON RA. PATIENT IS TOLERATING WELL. PATIENT IS A BIT ANXIOUS AT TIMES. WILL CONTINUE TO CLOSELY MONTIOR.
[2019-10-27] MEDS ORDERED: PROZAC10 MG PO ×2 (09:48)
[2019-10-27] MEDS ORDERED: MIRALAX119 GM PO ×2 (09:57)
[2019-10-27] MEDS ORDERED: ZOCOR40 MG PO ×2 (10:00)
--- NOTE | 2019-10-27 10:00 | NUR ---
SPOKE WITH PATIENT IN ROOM. PATIENT WAS SITTING UP AT SIDE OF BED. HR WAS 120'S CONSISTENTLY. INSULATOR TECHNICIAN IN ROOM ALSO. PATIENT LIVES ALONE IN APARTMENT WITH FEW STEPS. HE HAS A 4WW IN HIS CAR AND USES A CANE INSIDE. HE DRIVES. HE HAS PCP AT [facility] [place]. HE USES [facility]. HE CAN AFFORD MEDICATIONS THROUGH [facility]. HE DENIES PROBLEMS AFFORDING FOOD BUT SHOPPING HAS BEEN AN ISSUE WHILE FEELING WEAK. HE STATES HE IS NOT WORRIED ABOUT UTILITY PAYMENTS. HE STATES HE DID HAVE [facility] CARE[facility] BUT HE IS TRYING TO GET THAT REINSTATED. HE STATES HE HAD TO HAVE COVID TEST. HE STATES [facility] IS PAYING FOR THAT. HE PLANS ON GOING HOME, FEELS HE IS SAFE THERE. I TOLD HIM I WILL CALL [facility] AND FIND OUT WHERE THEY ARE IN THIS, ALSO WE WILL BE SENDING CLINICALS TO [facility] SO THEY WILL KNOW WHAT IS GOING ON. HE IS OK WITH THIS. ALSO DISCUSSED THAT OUR CHW CAN TALK WITH HIM NEXT WEEK ABOUT OPTIONS IN GETTING HELP WITH HIS SHOPPING UNTIL [facility] IS BACK IN. CALLED [facility]. SPOKE WITH ROSELINE WHO STATES HE DID HAVE SERVICES SIGNED UP THROUGH THE [facility] BUT THAT THE [facility] COULDN'T GET HIM TO CONTACT THEM BACK WITH PROCESS. SHE STATES THAT YES, THEY NEEDED A COVID SCREEN. THEY WOULD ACCEPT ONE DONE HERE IF IT IS SET UP FOR DISCHARGE. CALLED [facility] [phone] AND ASKED FOR CALL BACK.
--- NOTE | 2019-10-27 10:17 | NUR ---
PATIENT CALLED FOR ASSISTANCE BACK TO BED. 1PA W/FWW AND GAIT BELT. LINENS CHANGED, CHUNG EMPTIED, PATIENT TOLERATED AMBULATION WELL, BUT WAS VERY EXHAUSTED AND WINDED WHEN HE GOT INTO BED. CALL LIGHT AND SIDE TABLE WITHIN REACH.
--- NOTE | 2019-10-27 11:08 | NUR ---
CALLED MD LEVIN TO UPDATE THAT PATIENTS VITALS APPEAR BETTER AFTER THAT METOPROLOL. PATIENT SEEMS MORE EXHASUTED AND WORN OUT. PATIENT LAYING IN BED AT THIS TIME. PATIENT IS VERY ANXIOUS AND CANT SEEM TO RELAX. PATIENT STATES I AM ALWAYS ANXIOUS AT HOME. PATIENT FALLS ASLEEP MID SENTENCE WITH NURSE IN THE ROOM. SEE NEW ORDERS. WILL CONTINUE TO CLOSELY MONITOR.
--- NOTE | 2019-10-27 11:08 | NUR ---
RECEIVED CALL FROM KIMANI SALE[facility]. SHE STATES PATIENTS HOME CARE OPTION TWO DAYS AGO. SHE STATES THEY CAN LOOK AT EXTENSION. SHE STATES PATIENT IS NOT VESTED FOR SENIOR CARE COVERAGE. SHE STATES A NEW [facility] MIGHT BE HELPFUL NEXT WEEK IF WE WANT TO TRY AND GET [facility] IN TO HIM. DISCUSSED I WILL SEND CLINICALS TO THEM.
--- NOTE | 2019-10-27 11:26 | NUR ---
FAXED CLINICALS TO [facility]. FAX CONFIRMATION RECEIVED 1124AM.
--- NOTE | 2019-10-27 13:00 | NUR ---
this rn has been in to check on patient multiple times. patients abx going at this time. patient states "my anxiety is a little better now". patient reported that he is lonely. offered some distraction techniques. patient is now watching tv. no other needs at this time. will continue to clsoely monitor.
--- NOTE | 2019-10-27 13:50 | NUR ---
reported to physician positive blood cultures drawn on 10/25 @ 0302
--- NOTE | 2019-10-27 14:15 | NUR ---
MD OSORIOO IN TO SEE PATIENT. ISSUES ADDRESSED WITH PATIENT AND MD. ALL QUESTIONS ANSWERED. NO OTHER NEEDS AT THIS TIME. WILL CONTINUE TO CLSOELY MONITOR.
--- NOTE | 2019-10-27 14:59 | NUR ---
ANSWERED CALL LIGHT, FOUND PATIENT STANDING AT SIDE OF BED, WRAPPED UP IN HIS CORDS, SOME TABLE ITEMS HAD BEEN KNOCKED ONTO FLOOR WELL. THIS TEAM SUPERVISOR REMIDED HIM OF HIS CHUNG AND TO PLEASE CALL FOR ANY ASSISTANCE. PATIENT AGREED. REPOSITIONED INTO BED, FRESH ICE WATER GIVEN. SANDY UNDER LEGS. CALL LIGHT AND TABLE WITHIN REACH.
--- NOTE | 2019-10-27 15:36 | NUR ---
PATIENT RESTING AT THIS TIME. REMINDED PATIENT TO CALL IF HE NEEDS SOMETHING. PATIENT RESTING IN BED AT THIS TIME. WILL CONTINUE TO CLOSELY MONITOR.
--- NOTE | 2019-10-27 18:09 | NUR ---
PATIENT WAS ABLE TO GET A GOOD NAP IN AND WOKE UP FEELING BETTER THIS EVENING. PATIENT REMAINS FORGETFUL AT TIMES. PATIENTS MEDICATIONS GIVEN AND DINNER AT THE BEDSIDE. WILL CONTINUE TO CLOSELY MONITOR.
--- NOTE | 2019-10-27 18:10 | NUR ---
PATIENT AWAKE IN BED, LAB AT BEDSIDE. THIS GLASS ENAMEL MIXER IN WIH NEW CUP OF SOUP, LAST ONE WAS SPILLED. RN DESIRE IN TO ASSIST IN BOOSTING PATIENT IN BED.
[2019-10-27] MEDS ORDERED: NORVASC10 MG PO ×2 (18:43)
[2019-10-27] MEDS ORDERED: IRON325 M1 PO ×2 (18:44)
[2019-10-27] MEDS ORDERED: VITAMIN D325 MCG PO ×2 (18:44)
--- NOTE | 2019-10-27 18:45 | NUR ---
MED REC COMPLETE
--- NOTE | 2019-10-27 20:30 | NUR ---
SHIFT REPORT RECEIVED NAVA PHIPPS RN. ASSESSMENT COMPLETED AT THIS TIME. PT COMPLAINS OF GAS PAIN AND NAUSEA, PRN SIMETHICONE AND ZOFRAN ADMINISTERED. LUNGS CLEAR, 2L O2 VIA NC IN PLACE. HR PACED, RATE IN 70'S, SCHEDULED METOPROLOL GIVEN PER ORDERS. BOWEL TONES ACTIVE. CHUNG IN PLACE, DRAINING FREELY, CATH CARE PROVIDED. NYSTATIN APPLIED TO GROIN FOLDS. EDEMA PRESENT, 4+ TO FEET, 3+ TO BLE, 1+ TO HIPS, AND GENERALIZED IN ARMS, LEGS CONTINUES TO WEEP. IV DRESSING CHANGED, SITE WNL, PATENT AND SALINE LOCKED. CB, 3 UNITS SLIDING SCALE AND 30 UNITS LANTUS ADMINISTERED. PT ALERT/ORIENTED, REMAINS FORGETFUL. NO FURTHER REQUESTS AT THIS TIME, CALL LIGHT WITHIN REACH.
--- NOTE | 2019-10-27 20:48 | PATH ---
[facility] [address] [facility] [place], [place] [address] Signed ORDERING PHYSICIAN: Umang Garcia MD PATIENT NAME: NINA PINZON GENDER: Duke : 1950 SPECIMEN(S): No Source Given MOLECULAR PATHOLOGY RESULTS: SARS-CoV-2 Not Detected ADDITIONAL NOTES.: The [place] Fusion SARS-CoV-2 Assay is a multiplex real-time PCR (RT-PCR) in vitro diagnostic test intended for the qualitative detection of RNA from SARS-CoV-2 from individuals who meet COVID-19 clinical and/or epidemiological criteria. In general, SARS-CoV-2 RNA can be detected during the acute phase of infection. Positive results indicate the presence of SARS-CoV-2 RNA. Clinical correlation with patient history and other diagnostic information is necessary to determine patient infection status. Positive results do not rule out bacterial infection or co-infection with other viruses. Negative results do not preclude SARS-CoV-2 infection and should not be used as the sole basis for patient management decisions. Negative results must be combined with other clinical observations, patient history, and epidemiological information. The [place] Fusion SARS-CoV-2 Assay is not yet approved or cleared by the [place] FDA. When there are no FDA-approved or cleared tests available, and other criteria are met, FDA can make tests available under an emergency access mechanism called an Emergency Use Authorization (EUA). The EUA for this test is supported by the Nursery Supervisor of Health and Human Service's (HHS's) declaration that circumstances exist to justify the emergency use of in vitro diagnostics for the detection and/or diagnosis of the virus that causes COVID-19. This EUA will remain in effect for the duration of the COVID-19 declaration justifying emergency of IVDs, unless it is terminated or revoked by FDA, after which the test may no longer be used. The [place] Fusion SARS-CoV-2 Assay is for use only under EUA in US laboratories certified under the Clinical Laboratory Improvement Amendments of 1988 (CLIA) to perform high complexity tests. [facility] is certified under CLIA to perform high complexity PATIENT NAME: NINA PINZON PATHOLOGY DATE OF : 54 REPORT #: [id number] PHYSICIAN: RHINA CASTELLANOS PCP: MICHAEL CARY REPORT IS CONFIDENTIAL AND NOT TO BE RELEASED WITHOUT AUTHORIZATION [address] [address] Signed clinical laboratory testing. PERFORMING LABORATORY.: Molecular testing was performed by [facility] [address] [place], [place] [address] [address] (Software Development Engineer: Eddie Rodney D.O.; CLIA#: [id number]) Diagnostician: System Interface Pathologist Electronically Signed 10/27/2019 Copies: ~ PATIENT NAME: NINA PINZON PATHOLOGY DATE OF : 54 REPORT #: [id number] PHYSICIAN: RHINA PATHOLOGY PCP: MICHAEL CARY REPORT IS CONFIDENTIAL AND NOT TO BE RELEASED WITHOUT AUTHORIZATION
--- NOTE | 2019-10-27 21:10 | NUR ---
100MG IV LASIX GIVEN PER ORDERS.
--- NOTE | 2019-10-27 22:00 | NUR ---
PT FELT NEED TO HAVE BM, UP TO BSC WITH SBA. PT UNABLE TO STOOL, RETURNED TO BED.
--- NOTE | 2019-10-27 23:00 | NUR ---
PT SLEEPING OFF AND ON, CURRENTLY RESTING WITH EYES CLOSED. NO APPARENT DISTRESS. RESPIRATIONS EVEN AND UNLABORED.
--- NOTE | 2019-10-28 00:20 | NUR ---
ASSESSMENT COMPLETED AT THIS TIME. NO COMPLAINTS OF PAIN OR NAUSEA CURRENTLY. NO OTHER CHANGES FROM PRVIOUS ASSESSMENT. CHUNG REMAINS PATENT, DRAINING FREELY. 2L O2 REMAINS IN PLACE. CALL LIGHT IN REACH.
--- NOTE | 2019-10-28 02:13 | NUR ---
IN TO TIP UROMETER, PT RESTING WITH EYES CLOSED, NO APPARENT DISTRESS. RESPIRATIONS EVEN AND UNLABORED. VSS.
--- NOTE | 2019-10-28 02:37 | NUR ---
PT CALLED TO REQUEST NAUSEA MEDICATION. PRN ZOFRAN AND SIMETHICONE GIVEN. PT APPEARS RESTLESS, SITTING AT SIDE OF BED, PRN VISTARIL GIVEN WELL. PT ASSITED BACK IN TO BED, NO FURTHER REQUESTS AT THIS TIME.
--- NOTE | 2019-10-28 04:27 | NUR ---
ASSESSMENT COMPLETED, UNCHANGED FROM PREVIOUS. VITAL SIGNS STABLE. CHUNG PATENT. IV INTACT AND SALINE LOCKED. NO COMPLAINTS OR REQUESTS AT THIS TIME.
--- NOTE | 2019-10-28 06:17 | NUR ---
IN TO EMPTY CHUNG BAG. PT SITTING AT SIDE OF BED, ASSISTED HIM TO LAY BACK DOWN PER HIS REQUEST AND COVERED HIM WITH A SHEET. NO FURTHER REQUESTS AT THIS TIME.
--- NOTE | 2019-10-28 07:30 | NUR ---
REPORT RECIEVED. IS RESTING IN BED.
--- NOTE | 2019-10-28 08:00 | NUR ---
ASSESSMENT DONE. TALKED WITH PATIENT ABOUT POC FOR DAY. IS UNDERSTANDING. REPOSITIONED IN BED. O2 AT 2L NC OFF O2 SATS HIGH 90'S.
--- NOTE | 2019-10-28 10:11 | NUR ---
RESTING AT THIS TIME. REMAINS OF O2, SAT 96 ON RA.
--- NOTE | 2019-10-28 10:30 | NUR ---
O2 REAPPLIED WHEN ASLEEP O2 SAT DOWN TO 83. UPON AWAKENING O2 SAT BACK TO 96. PATIENT STATES HE HAS SLEEP APNEA.
--- NOTE | 2019-10-28 10:40 | NUR ---
DR. LEVIN HERE TO SEE PATIENT, CINDY RECIEVED TO TRANSFER TO MED-SURG. MONITOR DC'D.
--- NOTE | 2019-10-28 11:22 | NUR ---
GAVE PT A SHOWER, HE TOLERATED IT WELL. UP TO CHAIR WITH CALL LIGHT AND MARIYA FROM PHYSICAL THERAPY IS IN THERE WORKING WITH HIM NOW.
--- NOTE | 2019-10-28 11:25 | NUR ---
WORKING WITH PHYS THERAPY AFTER SHOWER.
--- NOTE | 2019-10-28 12:00 | NUR ---
ASSESSMENT DONE. CHUNG CATH PATENT WITH CLEAR YELLOW URIONE NOTED.
--- NOTE | 2019-10-28 13:00 | NUR ---
LASIX 100 MG IV GIVEN PER ORDERS.
--- NOTE | 2019-10-28 13:19 | NUR ---
TOOK LUNCH POOR. 5 UNITS INSULIN HELD ACCUCHECK 114. THIS PER MD. UP TO BR TO EXPELL STOOL. MYLCON AND VISTERIL 50 MG GIVEN PER R/O. WILL BE TRANSFERRED TO MEDICAL FLOOR THIS AFTERNOON,
--- NOTE | 2019-10-28 14:40 | NUR ---
TO MED-SURG VIA BED. REPORT TO RIMMA BULLARD.
--- NOTE | 2019-10-28 15:16 | NUR ---
1430: REPORT RECIEVED FROM JUAN MIGUEL BULLARD. PT ARRIVED TO MED SURG ROOM 109 AND PT ORIENTED TO HIS ROOM. PT STATES HE RECEIVED A DOSE OF VISTARIL AND FEELS MUCH MORE RELAXED AT THIS TIME. PT STATES HE HAS CHRONIC ABD PAIN FROM PRIOR SURGERIES AND ALL OVER DUE TO HIS FIBROMYLAGIA BUT THAT IT IS BASELINE AND UNDER CONTROL. VSS AT THIS TIME. SEE ASSESSMENT.
--- NOTE | 2019-10-28 15:21 | NUR ---
SCD'S PLACED ORDERED.
--- NOTE | 2019-10-28 15:58 | NUR ---
PT sleeping at this time.
--- NOTE | 2019-10-28 18:14 | NUR ---
Pt sleeping, sat 93% on room air.
--- NOTE | 2019-10-28 19:15 | NUR ---
REPORT AT PT. BEDISE. PT ALERT AND PARTICIAPING IN REPORT. NO REQUEST AT THIS TIME. CALL LIGHT IN REACH.
--- NOTE | 2019-10-28 20:02 | NUR ---
ORACLE ETL DEVELOPER ROUNDING NOTE. PT UTILIZES CALL LIGHT, REQUESTS PRN FOR NAUSEA. DINNER TRAY REMOVED FROM BEDSIDE. PRN ZOFRAN ADMINISTERED. PT WOULD LIKE TO TAKE A BREAK FROM SCD'S DUE TO BEING TOO TIGHT, AND MAKING HIM TOO HOT. PT DENIES FURTHER NEEDS AT THIS TIME. CALL LIGHT WITHIN REACH.
--- NOTE | 2019-10-28 23:24 | NUR ---
CALL LIGHT ANSWERED. PATIENT C/O COLD IN THE ROOM. WARM BLANKET PROVIDED. ROOM TEMP UP FROM 71 TO 72 DEGREE PER PATIENT'S REQUEST.
--- NOTE | 2019-10-29 02:30 | NUR ---
PT REQUESTING FLUIDS. CURRETN COUNT 845/1800. GIVEN MILK AND ORANGE JUICE
--- NOTE | 2019-10-29 07:10 | NUR ---
0657: Report received from Ina BULLARD. Pt being helped to the BR by the ASSORTER at this time.
--- NOTE | 2019-10-29 08:00 | NUR ---
patient pushed call light and was very upset about fluid intake, this COURT MAGISTRATE had said we needed to double check on where he sat before giving in more fluids, patient asked to talk to charge nurse, patient is currently happy breakfast came with orange juice on the tray and he is content eating his breakfast
--- NOTE | 2019-10-29 08:38 | NUR ---
Pt states his pain level is baseline at a 7 and is tolerable to him at this time. Pt complians of his fluid restrictions and the precautions and reasons for restrictions. Pt now states understanding and states he will follow the restrictions. No other new problems noted, see assessment.
--- NOTE | 2019-10-29 08:52 | NUR ---
PATIENT USED CALL LIGHT CALLED TO USE THE RESTROOM, PATIENT WANTS TO KEEP HIS BREAKFAST TRAY NEXT TO HIS BED HE WASNTS TO FINISH IT LATER
--- NOTE | 2019-10-29 09:24 | NUR ---
Pt repositioned in the bed at this time. call lyles within reach.
--- NOTE | 2019-10-29 11:16 | NUR ---
PT RECENTLY COMPLETED PHYSICAL THERAPY AND STATES HIS BACK PAIN IS NOW AN 8/10. PT STATES HE NEEDS SOMTHING FOR HIS PAIN, HOWEVER HE FELL TO SLEEP WHILE I WAS STILL IN HIS ROOM.
--- NOTE | 2019-10-29 12:24 | NUR ---
PT COMPLAINS OF SOME NAUSEA AND WAS TREATED FOR IT, SEE EMAR.
--- NOTE | 2019-10-29 13:02 | NUR ---
PT CALL LIGHT ON. PUMP ALARMING, INFUSION AND FLUSH COMPLETE. IV SALINE LOCKED, ALCOHOL CAP APPLIED. PT REPORTS A HEADACHE AND BACK ACHE THAT "THE DOCTOR TOLD ME THIS MORNING HE WOULD GET ME MEDICAITON." MD CONSULTED, MD HAS NOT YET ROUNDED OR SPOKEN WITH PT TODAY. PT STATES "OH WELL, THATS TRUE." PT RESTING IN BED. NO ADDITIONAL REQUESTS OR COMPALINTS AT THIS TIME. CALL LIGHT WITHIN REACH.
--- NOTE | 2019-10-29 13:31 | NUR ---
PT ASSISTED TO THE BR AND HAD A MEDIUM SIZED BM AND WAS ASSISTED BACK TO HIS CHAIR. HIS CALL BRUSH IS WITHIN REACH AT THIS TIME. PT STATES HIS PAIN IS AN [address] LEVIN WANTED THE STAFF TO GIVE HIM SOMETHING FOR IT. NO NEW ORDERES NOTED AND DR LEVIN WAS ASKED ABOUT THIS AND HE STATES THAT THIS IS NOT TRUE. WHILE ASSESSING THE PT HE FELL TO SLEEP. SEE ASSESSMENT.
--- NOTE | 2019-10-29 14:23 | NUR ---
PT COMPLAINS OF SOME GAS PAIN AND WAS MEDICATED ORDERED, SEE EMAR. PT COMPLAINS OF HIS CHUNG ATTACHMENT BEING TOO TIGHT, THERE IS SLACK NOTED BUT WAS CHANGED PER THE PT'S REQUEST. RON STATES THAT IT IS MUCH BETTER AFTER BEING REPLACED.
--- NOTE | 2019-10-29 15:27 | NUR ---
PATIENT PUSHED CALL LIGHT, PATIENT IS CURRENTLY RESTING IN BED, COMPLAINING ABOUT HAVING "DIAREAH" REPORTED TO NURSE
--- NOTE | 2019-10-29 16:03 | NUR ---
PATIENT RFUSED SHOWER. THIS MORNING HE DID WASH HIS FACE.
--- NOTE | 2019-10-29 16:03 | NUR ---
Pt states he is now having lower back pain and requested additional an lidocaine patch which Dr Grady gave an order for. See Emar.
--- NOTE | 2019-10-29 17:17 | NUR ---
RON STATES HIS PAIN IS BETTER AFTER THE ADDITIONAL LIDOCAINE PATCH WAS PLACED. HE DOES STATE THAT HIS ANXIETY HAS INCREASED AND WAS MEDICATED, SEE EMAR.
--- NOTE | 2019-10-29 22:50 | NUR ---
PT ASSESSMENT COMPLETE. PT DENIES PAIN, STATES THAT HE IS NAUSEATED, DENIES SOB. REPORTS FEELING ANXIOUS, REQUESTS VISTARIL, TRAZADONE, AND ANTIEMETIC. PT WITH GENERALIZED EDEMA TO RUE, 4+ EDEMA TO BLE. SKIN WITH VARIOUS SCABS AND BLISTERS TO BLE. PT REPORTS NUMBNESS AND TINGLING TO ALL EXTREMITIES, CMS OTHERWISE INTACT. IV WNL. 150 ML ICE WATER PROVIDED, EDUCATION REGARDING FLUID RESTRICTION REINFORCED. PT STATES UNDERSTANDING. CHUNG CATH DRAINING CLEAR YELLOW URINE. PT DENIES FURTHER NEEDS AT THIS TIME. CALL LIGHT WITHIN REACH.
--- NOTE | 2019-10-30 00:33 | NUR ---
ANSWERED CALL LIGHT. PATIENT IS SITTING AT THE EDGE OF THE BED. CALL LIGHT IN REACH.
--- NOTE | 2019-10-30 01:10 | NUR ---
PT REPORTS TO RECREATION SUPERVISOR THAT HE WOULD LIKE HIS ANXIETY MEDICATION. DIMENSIONAL INTEGRATION ENGINEER TO ROOM, EDUCATION PROVIDED REGARDING MEDICATION AVAILABILTY, REMINDED PT HE HAD THIS WITH [facility]. PT STATES UNDERSTANDING. DENIES NEEDS AT THIS TIME. CALL LIGHT IN REACH.
--- NOTE | 2019-10-30 05:32 | NUR ---
pT ASSESSMENT COMPLETE. PT DENIES PAIN OR SOB. PT REPORTS NAUSEA, REQUESTS PRN ZOFRAN, ADMINISTERED. ASSESSMENT UNCHANGED FROM PREVIOUS. IV SITE NOTED TO BE LEAKING. NEW IV STARTED, OLD IV SITE DC'D. PT ICE WATER REFILLED WITH LAST OF WATER AVAILABLE. PT DENIES FURTHER NEEDS AT THIS TIME. CALL LIGHT IN REACH.
--- NOTE | 2019-10-30 05:40 | NUR ---
PT REQUESTS TO GET UP TO CHAIR, SBA WITH FWW. PT TOLERATED WELL. PERSONAL CARE ITEMS AND CALL LIGHT IN REACH. PT DENIES FURTHER NEEDS.
--- NOTE | 2019-10-30 07:04 | NUR ---
PT UTILIZES CALL LIGHT, REPORTS FEELING ANXIOUS, REQUESTS PRN MEDICATION. ADMINISTERED, SEE EMAR. PT DENIES FURTHER NEEDS AT THIS TIME. CALL LIGHT IN REACH.
--- NOTE | 2019-10-30 08:00 | NUR ---
REPORT RECIEVED. PT IN CHAIR. CALL LGITH IN REACH. DENIES NEEDS.
--- NOTE | 2019-10-30 08:16 | NUR ---
PATIENT IS UP IN CHAIR, PATEINT ORDERED BREAKFAST, 300 WATER WAS PUT AND RECORDED ON PATIENTS FLUID RESTRICTION SHEET, PATIENT WAS ANXIOUS WITH HIS 80 BLOOD SUGAR LEVEL NURSE IS AWARE
--- NOTE | 2019-10-30 10:13 | NUR ---
ASSESSMENT COMPLETED. DIM LUNG BASES HEART SOUNDS REGULAR. HYPERACTIVE BOWEL TONES. PT WITH LOOSE STOOL. BOWEL MEDS HELD. 4+ IN BILAT LE. PULSES X4 +1. DENEIS PAIN. OT IN ROOM NOW.
--- NOTE | 2019-10-30 12:55 | NUR ---
SALINE LOCKED IV. CHUNG DC'D PER ORDER. PT TOLERATED WELL.
--- NOTE | 2019-10-30 14:00 | NUR ---
PT GIVEN IV LASIX AT THIS TIME. PT UP IN THE CHAIR.
--- NOTE | 2019-10-30 14:52 | NUR ---
PT REPORTING SOME ANXIETY. PRN MEDICAITON GIVEN. HEAT PACK FOR SHOULDER PAIN PROVIDED.
--- NOTE | 2019-10-30 15:11 | NUR ---
RECEIVED MESSAGE FROM LILIANA AT [facility] [phone]. TRIED TO RETURN HER CALL, MESSAGE LEFT FOR CALLBACK.
--- NOTE | 2019-10-30 17:50 | NUR ---
IN TO ADMINISTER INSULIN FOR DINNER. PT SITTING AT EDGE OF BED. CALL LIGHT IN REACH. DENEIS NEEDS.
--- NOTE | 2019-10-30 19:05 | NUR ---
bedside report received from offgoing rn. pt sittin up in chair. denies needs at this time. call light in reach.
--- NOTE | 2019-10-30 21:15 | NUR ---
pt sitting up in chair, resting with eyes closed. does not wake when keno writer/runner enters the room. call light in reach.
--- NOTE | 2019-10-30 22:39 | NUR ---
PT ASSESSMENT COMPLETE. PT RESTING IN BED WITH EYES CLOSED, DOES NOT WAKE WHEN SUPERVISOR FUR DRESSING ENTERS THE ROOM. PT WAKES EASILY TO VOICE AND TOUCH. REPORTS NASUEA. PRN ADMINISTERED, SEE EMAR. PT DENIES PAIN OR SOB. LUNG SOUNDS DIM IN BILATERAL BASES. EDEMA PRESENT TO L HAND, BLE, B HIPS. SCABS AND SKIN TEARS TO BLE'S WHICH ALSO CONTINUE TO WEEP. PT ALTERNATING BETWEEN KEEPING FEET ON BED OR HANGING OFF THE SIDE IN DEPENDENT POSITION. PT STATES THAT SOMETIMES HIS LEGS FEEL BETTER WHEN THEY ARE OVER THE SIDE. HE DECLINES TO WEAR SCD'S AT THIS TIME. IV WNL. PT UP TO THE BATHROOM AND BACK TO BED. DENIES FURTHER NEEDS AT THIS TIME. CALL LIGHT IN REACH.
--- NOTE | 2019-10-31 02:15 | NUR ---
PT RESTING IN BED WITH EYES CLOSED. RESPIRATIONS EVEN AND UNLABORED. PT APPEARS TO BE SLEEPING. DOES NOT WAKE WHILE HUMAN RESOURCES BENEFITS ADMINISTRATOR AT DOORWAY. CALL LIGHT IN REACH.
--- NOTE | 2019-10-31 05:10 | NUR ---
PT ASSESSMENT COMPLETE. PT DENIES PAIN, NAUSEA, OR SOB. ASSESSMENT UNCHANGED FROM PREVIOUS. PT USING THE URINAL APPROPRIATELY AT BEDSIDE. CLEAR YELLOW URINE PRESENT IN URINAL. PT REQUESTS ICE WATER AND KHADAR CRACKERS. DENIES FURTHER NEEDS AT THIS TIME. CALL LIGHT IN REACH.
--- NOTE | 2019-10-31 05:29 | NUR ---
PT UTILIZES CALL LIGHT, REPORTS ANXIETY AND NAUSEA. PRNS ADMINISTERED. SEE EMAR. PT DENIES NEEDS AT THIS TIME. IS GOING TO SIT AT EDGE OF BED FOR A WHILE. CALL LIGHT IN REACH.
--- NOTE | 2019-10-31 07:15 | NUR ---
REPORT RECEIVED. PT IN BED, DENEIS PAIN. SALINE LOCKED. CALL LIGHT IN REACH. DENEIS NEEDS.
--- NOTE | 2019-10-31 07:50 | NUR ---
PATIENT SITTING UP IN CHAIR. LINENS CHANGED. ICE WATER GIVEN. SETS UP TABLE FOR BREAKFAST. CALL LIGHT WITHIN REACH. NO OTHER NEEDS AT THIS TIME
--- NOTE | 2019-10-31 09:15 | NUR ---
Spoke with Velasquez. He would like to resume care with [facility] through [facility]. States he did not call the [facility] back to confirm as he has issues with his phone, He declines SNF, plans on DC to home. Was not happy with CG in the past. Plan for assist with good instruction for cg so they are aware of what his needs are. Attempted to call the [facility], message left.
--- NOTE | 2019-10-31 09:42 | NUR ---
PATIENT RESTING IN BED. VITAL SIGNS AND I&O DONE. CALL LIGHT WITHIN REACH. NO OTHER NEEDS AT THIS TIME
--- NOTE | 2019-10-31 09:45 | NUR ---
ASSESSMENT COMPLETED. MEDICATIONS GIVEN. VITALS TAKEN AND STABLE. PT SITTING AT SIDE OF BED. DENEIS PAIN/NAUSEA OR ANXIETY AT THIS TIME.
--- NOTE | 2019-10-31 12:23 | NUR ---
PT REPORTING NAUSEA AND AXIETY. PRN MEDICATIONS ADMINSTERED. INSULIN GIVEN. PT ABX STARTED. PT DENIES FURTHER NEEDS.
--- NOTE | 2019-10-31 13:34 | NUR ---
PATIENT SITTING UP IN BED. VITAL SIGNS AND I&O DONE. CALL LIGHT WITHIN REACH. NO OTHER NEEDS AT THIS TIME
--- NOTE | 2019-10-31 16:32 | NUR ---
ROUNDED ON PT. LYING IN BED. REPORTING SOME PAIN. REFUSING HEAT PACK. LIDOCAIN IN PLACE. DENIES FURTHER NEEDS. CALL LIGHT IN REACH
--- NOTE | 2019-10-31 17:10 | NUR ---
1655- BLOOD SUGAR 64. 300ML APPLE JUICE AND CRACKERS GIVEN. PT REPORTS SOME LIGHTHEADEDNESS BUT IS OTHERWISE ALERT AND ORIENTED WITH MINIMAL SYPMTOMS. 1710- RECHECKED BLOOD SUGAR AT 151. INSULINE HELD. DR GROSS NOTIFIED. NO NEW ORDERS RECEIVED.
--- NOTE | 2019-10-31 17:29 | NUR ---
PATIENT RESTING IN BED. VITAL SIGNS AND I&O DONE. CALL LIGHT WITHIN REACH. NO OTHER NEEDS AT THIS TIME
--- NOTE | 2019-10-31 18:27 | NUR ---
PT REPORTING ANXIETY AND NASUEA. PRN MEDICATIONS GIVEN (SEE MAR).
--- NOTE | 2019-10-31 19:38 | NUR ---
IN TO DO BEDSIDE REPORT WITH DAY SHIFT RN. PT IS SITTING ON EDGE OF BED, DENIES NEEDS AT THIS TIME.
--- NOTE | 2019-10-31 21:01 | NUR ---
IN TO DO ASSESSMENT AND HS MEDS. PT DENIES PAIN OR NEEDS AT THIS TIME, IS LYING DOWN IN BED WANTING TO TRY TO SLEEP NOW. STATES SWELLING IN LEGS IS DECREASING "SLOWLY, ITS BETTER THAN IT WAS". CALL LIGHT IN REACH.
--- NOTE | 2019-10-31 22:10 | NUR ---
PT AWAKE IN BED, DENIES NEEDS, CALL LIGHT IN REACH.
--- NOTE | 2019-10-31 22:36 | NUR ---
I AND O CHARTED. V/S DONE BY PRIMARY RN
--- NOTE | 2019-11-01 00:45 | NUR ---
PT IN BED RESTING WITH EYES CLOSED, RESP EVEN UNLABORED, CALL LIGHT IN REACH.
--- NOTE | 2019-11-01 01:14 | NUR ---
CALL LIGHT ANSWERED. PRN NAUSEA AND ANXIETY MEDICATION ADMINISTERED. NO ADDITIONAL REQUESTS.
--- NOTE | 2019-11-01 02:25 | NUR ---
PT RESTING WITH EYES CLOSED, RESP EVEN AND UNLABORED.
--- NOTE | 2019-11-01 04:44 | NUR ---
PT UP SITTING AT EDGE OF BED. ASSESSMENT DONE. PT DENIES PAIN/NEEDS. COUGHING AND IS DONE. CALL LIGHT IN REACH.
--- NOTE | 2019-11-01 05:53 | NUR ---
PT CALLS TO ASK TO HAVE HIS BLOOD SUGAR CHECKED, STATES HE FEELS LIKE HIS BLOOD SUGAR IS LOW, STATES "I'M FEELING CONFUSED". BLOOD SUGAR CHECKED-73. PT GIVEN SNACK OF PUDDING AND CRACKERS PER REQUEST. DAILY WEIGHT DONE. PT STEADY ON FEET. BACK TO SIT AT EDGE OF BED. LASIX 100MG IV GIVEN. VS TAKEN AND STABLE. PT DENIES FURTHER NEEDS, CALL LIGHT IN REACH.
--- NOTE | 2019-11-01 06:55 | NUR ---
PT CALLS TO REQUEST ZOFRAN FOR NAUSEA.
--- NOTE | 2019-11-01 07:22 | NUR ---
PRN ZOFRAN GIVEN
--- NOTE | 2019-11-01 07:42 | NUR ---
Pt sitting up in bed at this time, respirations are even and non labored. Pt reports he ordered his breakfast. Pt denies needs at this time. Personal supplies and call light within reach.
--- NOTE | 2019-11-01 08:05 | NUR ---
PATIENT RESTING IN BED. RN IN ROOM. WHITE BOARD UPDATED. CALL LIGHT WITHIN REACH. NO OTHER NEEDS AT THIS TIME
--- NOTE | 2019-11-01 08:10 | NUR ---
Vistaril 50mg po given for anxiety.
--- NOTE | 2019-11-01 09:08 | NUR ---
PATIENT RESTING IN BED. RN IN ROOM. VITAL SIGNA AND I&O DONE. CALL LIGHT WITHIN REACH. NO OTHER NEEDS AT THIS TIME
--- NOTE | 2019-11-01 09:15 | NUR ---
Called and left a message for TUAN Mccrary at the [facility] requesting assist with CG for Velasquez. Also called and left message with Kylie Carter RN from [facility]. Will attempt to call if no response by this afternoon. Will cont. to try and assist pt with resuming in home cg through the [facility].
--- NOTE | 2019-11-01 10:00 | NUR ---
Spoke with Kylie Carter RN from [facility]. She reviewed Velasquez's chart. Cardiac refer in , with the [facility] and appt was rescheduled to 08/29/19. Appt. was not kept and appt was scheduled. He is now rescheduled with Cardiology on 11/29/19 @ 11;00 with [facility] [phone].
--- NOTE | 2019-11-01 13:23 | NUR ---
BEA, chart notes, face sheet sent to Courtney Adams at [facility] requesting resumption of cg and palliative care.
--- NOTE | 2019-11-01 13:24 | NUR ---
Oxycodone 5mg po admin at this time for 4/10 right leg pain. Physical therapy to work with patient this afternoon. Blood completed. Pt reports doing well with no needs. Family remains at bedside.
--- NOTE | 2019-11-01 13:35 | NUR ---
PATIENT SITTING UP IN BED. VITAL SIGNS AND I&O DONE. ICE WATER GIVEN. CALL LIGHT WITHIN REACH. NO OTHER NEEDS AT THIS TIME
--- NOTE | 2019-11-01 14:42 | NUR ---
Vistaril 50mg po given per pt request for anxiety.
--- NOTE | 2019-11-01 18:00 | NUR ---
PATIENT RESTING IN BED. VITAL SIGNS AND I&O DONE. CALL LIGHT WITHIN REACH. NO OTHER NEEDS AT THIS TIME
--- NOTE | 2019-11-01 18:21 | NUR ---
pHENERGAN 12.5MG IVP ADMIN VIA PUMP FOR NAUSEA
--- NOTE | 2019-11-01 19:10 | NUR ---
REPORT AT BEDSIDE. PT REQUESTING ORAL FLUIDS. PT ON 1800 LIMIT EDUCATED PT ONLY 300ML LEFT UNTIL 0600. NO PAIN AT THIS TIME, NO OTHER REQUEST. CALL LIGHT IN REACH.
--- NOTE | 2019-11-01 19:35 | NUR ---
VS COMPLETE, STABLE. CBG 88. PRIMARY NURSE IN ROOM. COTTAGE CHEESE AND FRUIT PROVIDED REQUESTED. CALL LIGHT IN REACH.
--- NOTE | 2019-11-01 19:35 | NUR ---
PT BG 88. PT SEEMS SLOW TO RESPOND. PT REQUESTED COTTAGE CHEESE AND FRUIT, PROVIDED. CALL LIGHT IN REACH. PT SITTING UP IN BED EATING SNACK
--- NOTE | 2019-11-01 23:53 | NUR ---
PT USE CALL LIGHT. PT DESCRIBES WAKING UP SUDDENLY FROM DREAM, WIOTH RACING HEART, AND GETTING LITTLE TO NO SLEEP. REQUESTS TO [facility] SLEEP AID WITH DOC IN AM AT ROUNDS. CALL LIGHT IN REACH.
--- NOTE | 2019-11-02 00:10 | NUR ---
PT RESTING IN BED WITH EYES OPEN. OFFERED TRAZADONE PRN. CALL LIGHT IN REACH
--- NOTE | 2019-11-02 02:39 | NUR ---
PT USE CALL LIGHT, REQUEST ANTI-NAUSEA MEDICATION AND C/O ANXIETY REALTED TO DREAMS. PROVIDED PHENERGREN AND VISTRIL. PT IN BED RESTING. CALL LIGHT IN REACH
--- NOTE | 2019-11-02 03:07 | NUR ---
PT USE CALL LIGHT. PT FEELING GROGGY, REQUEST TO HAVE BLOOD SUGAR CHECKED. RESULTS 77. PT REQUESTED A SNACK. PROVIDED VANILLA PUDDING. PT UP IN BED EATIGN SNACK. CALL LIGHT IN REACH
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
--- NOTE | 2019-11-02 06:22 | NUR ---
PT UP IN CHAIR. CALL LIGHT IN REACH. NO REQUEST AT THIS TIME
--- NOTE | 2019-11-02 07:39 | NUR ---
Called and left message for Paige Adams requesting return call. I left messages yesterday and also sent chart with a Michelle requesting resumption of cg in the home and palliative care for this pt.
--- NOTE | 2019-11-02 08:45 | NUR ---
MORNING ASSESSMENT DONE. PATIENT IS DONE WITH BREAKFAST, MORNING MEDICATIONS GIVEN. PATIENT IS RESTING IN BED, DENIES OTHER NEEDS.
--- NOTE | 2019-11-02 10:00 | NUR ---
Return message from Paige at [facility]. Attempted to return call unable to reach.
--- NOTE | 2019-11-02 11:00 | NUR ---
Spoke with Velasquez and he is now stating he still has cg service in place, he just needed a covid test for [facility]. They requested in july and he did not provide so they stopped service. Called [facility] and they states he does need covid test to resume care. They are unsure if he has auth from the [facility] for cg service at this time, they will confirm with Neisha. They think they can resume care Wednesday if auth received from the [facility]. Was able to call and speak with Paige from the [facility]. She will work on auth, but it may not be completed until next week. I requested they be authed to transport him to his cardiology appt in [place] Nov. 2 and Paige states she thought this was part of the contract, but will review. Called to confirm with [facility] they received Covid results. Spoke with Neisha, hydrogen power plant manager. She did receive the labs. However, she states they are unable to provide CG until November. Informed I will work on SNF placement for 3 weeks. Pt will benefit from Rehab as he deconditioned, but so far has refused SNF placement. In and spoke with Velasquez. Updated to my calls with the [facility] and [facility]. He is hesitant to return to [facility] as he states he cannot keep up with the regimented rehab. Discussed if it was to much, he can speak with PT and ask for a decreased program. He does not feel they would be agreeable to this. He declines placement to other SNFS. He will consider over night and plans on calling his [facility] to see if there is someone he can stay with for 3 weeks. Discussed I will send his chart for a referral in case he decides to go to [facility] tomorrow. Called Paige at the [facility] and updated to new plan. She will go ahead and request auth for cg in the home to start in November. Chart faxed to Fabien at [facility]. Called and spoke with her about pt's concerns and she states he is in his rights to request less strenuous program if he feels he cannot tolerate. Will discuss with pt.
--- NOTE | 2019-11-02 12:18 | NUR ---
PATIENT ATE 100% OF LUNCH, DISCUSSING DIABETIC DIET CHOICES.
--- NOTE | 2019-11-02 14:19 | NUR ---
PATIENT GIVEN 4MG OF IV ZOFRAN FOR MILD/CHRONIC NAUSEA. PATIENT AMBULATED TO BATHROOM WITH FWW.
--- NOTE | 2019-11-02 15:24 | NUR ---
PATIENT IS REPORTING INCREASED ANXIETY, RELATED TO POTENTIAL DISCHARGE TO [facility] TOMORROW.
--- NOTE | 2019-11-02 17:36 | NUR ---
DINNER ORDERED, PATIENT GIVEN VISTARIL FOR ANXIETY.
--- NOTE | 2019-11-02 19:10 | NUR ---
SHIFT REPORT RECEIVED WITH DAYSHIFT ALEAH JAY AT BEDSIDE. PT AWAKE AND RESTING IN BED, NO DISTRESS NOTED. PT DENIES NEEDS, CALL LIGHT IN REACH. BOARD UPDATED.
--- NOTE | 2019-11-02 19:23 | NUR ---
I ASKED HIM IF HE WOULD LIKE TO TAKE A SHOWER TODAY AND HE SAID NO SO WE ARE GOING TO [facility] TOMORROW. I ALSO ASKED HIM IF HE BRUSHED HIS TEETH AND HE SAID NO.
--- NOTE | 2019-11-02 19:43 | NUR ---
brought pt a cup of ice water per his request. wrote it on the i&o sheet. he needs nothing more at this time.
--- NOTE | 2019-11-02 21:06 | NUR ---
PT CALLED ASKING FOR NAUSEA MEDS. ADMINISTERED ZOFRAN IV. PT STATES HE HAS HAD ALOT OF ANXIETY LATELY AND NIGHTMARES. HE STATES HE TAKES AN ANXIETY MEDICATION. WILL PASS ALONG TO PT'S PRIMARY RN THAT HE WOULD LIKE HIS ANXIETY MED WHEN HE CAN HAVE IT NEXT. HE DENIES FURTHER NEEDS AT THIS TIME. CALL LIGHT IS CLOSE.
--- NOTE | 2019-11-02 21:45 | NUR ---
ASSESSMENT COMPLETE, SCHEDULED MEDS GIVEN (SEE EMAR). PT AWAKE AND FULLY ORIENTED. VSS, PT DENIES PAIN AND REPORTS NAUSEA RESOLVED. RECENTLY MEDICATED BY ANOTHER RN. BLE ELEVATED WITH MULTIPLE PILLOWS, 3+ BILATERAL EDEMA NOTED. PEDAL PULSES NOTED, PT STATES, "THE RIGHT ONE HAS BEEN CRYING FOR THE LAST TWO WEEKS OR SO". WILL MONITOR. NO FURTHER NEEDS, CALL LIGHT IN REACH.
--- NOTE | 2019-11-03 00:20 | NUR ---
PT RESTING IN BED WITH EYES CLOSED. RR EVEN AND UNLABORED, NO DISTRESS NOTED. CALL LIGHT IN REACH.
--- NOTE | 2019-11-03 00:43 | NUR ---
PRN ANXIETY MED GIVEN (SEE EMAR). URINAL EMPTIED, LIGHTS OFF PER PT REQUEST AND BOARD UPDATED. EDUCATION AGAIN PROVIDED ON IMPORTANCE OF ELEVATING BLE, PT ASSISTED WITH REPOSITIONING AND ELEVATION OF BLE. CALL LIGHT IN REACH.
--- NOTE | 2019-11-03 02:06 | NUR ---
PT RESTING IN BED WITH EYES CLOSED, RR EVEN AND UNLABORED. CALL LIGHT IN REACH.
--- NOTE | 2019-11-03 04:16 | NUR ---
PT RESTING IN BED WITH EYES CLOSED. RR EVEN AND UNLABORED, NO DISTRESS NOTED. CALL LIGHT IN REACH.
--- NOTE | 2019-11-03 06:15 | NUR ---
DISCUSSED SCHEDULED LASIX WITH ANTHONY FROM TELEPHARMACY. PER TELEPHARMACY, SUGGESTS ADMINISTERING LASIX VIA PUMP AND NOT DIRECT PUSH. SITE WNL. ASSESSMENT COMPLETE, EDEMA IN BLE APPEARS TO BE IMPROVING. REMAINS ELEVATED. CALL LIGHT IN REACH.
--- NOTE | 2019-11-03 07:05 | NUR ---
per pt request accuccheck completed, result of 55 per security operations specialist. juice and crackers given per policy to pt. no additional needs, call light in reach.
--- NOTE | 2019-11-03 07:15 | NUR ---
PATIENT REQUESTED BLOOD SUGAR CHECK HE WAS FEELING "A LITTLE OFF." THIS HOUSE MOVING SUPERVISOR FOUND SUGAR TO BE AT 55, NOTIFIED ALEAH MENDOZA.
--- NOTE | 2019-11-03 07:27 | NUR ---
0715: Report received from Jaci BULLARD. Pt resting in his bed with no new problems and his call lyles within reach.
--- NOTE | 2019-11-03 08:18 | NUR ---
PT RESTING IN HIS BED AND HE STATES HE WILL NOT GO TO [facility]. DR GROSS TO THE BEDSIDE AND PT NOW SPEAKING WITH HIM. SEE ASSESSMENT FOR FULL UPDATE.
--- NOTE | 2019-11-03 09:00 | NUR ---
Spoke with Velasquez about his decision to go to [facility]. He would like them to call him and discuss a plan for his PT as he feels he was overworked the last time he was there. Discussed I will request them call him, but I am pretty sure the PT will write a plan of care he will need to follow. If he does not follow he could be discharged, to ask the PT to not follow the plan would be requesting them to commit medicare fraud. Velasquez states he has been speaking with a friend who states they can check on him, but it would only be every 3 days and they cannot provide care. Discussed with him I don't think this is the safest plan, but he is well within his rights to not go to a SNF and discharge to home without care. Called and spoke with [facility] and they will call and discuss care with pt.
--- NOTE | 2019-11-03 09:59 | NUR ---
PT MEDICATED WITH ZOFRAN WHILE EATING A FULL REGULAR BKF. HE WAS C/O NAUSEA AND WAS MEDICATED WITH ANXIETY MEDICATIONS ALSO AT THIS TIME. WHILE IN THE ROOM THE PT RECEIVED A PHONE CALL FROM [facility] AND HE BASICALY TOLD THEM OFF AND REFUSED TO GO TO THAT FACILITY. SUBSCRIPTION CLERK NOTIFIED AND DR GROSS.
--- NOTE | 2019-11-03 10:16 | NUR ---
Call from Fabien at [facility] and she states Velasquez was yelling at her on the phone when she attempted to discuss his admission there. He accused her of (last) threatening him with medicare discharge for noncompliance and stated he never wanted to return to [facility] again. Informed I will plan on dc to home and will cancel referral.
--- NOTE | 2019-11-03 10:19 | NUR ---
PT LAYING IN HIS BED AND HE STATES HE IS PLANNING ON TAKING A NAP AT THIS TIME.
--- NOTE | 2019-11-03 10:20 | NUR ---
Dr. Barry updated to converstation with Velasquez and with [facility]. She will discuss plan to dc to home with pt. Also updated I sent a [facility]ECK to the [facility] and requested they place pt on the Home Based program to have a RN visit him. Per the VA this could take 1 month to have started. The [facility] with resume payment for cg in the home, but CG will not return until November. Pt has been made aware of all the above, but declines a SNF. Pt is aware of our concern for a safe discharge, but would like to go home. Of note, pt has an exwife and 6 children. Per pt, none will have any contact with him.
[2019-11-03] MEDS ORDERED: CEPHALEXIN250 MG PO ×2 (11:12)
[2019-11-03] MEDS ORDERED: METOPROLOL TART25 MG PO ×2 (11:13)
[2019-11-03] MEDS ORDERED: SILDENAFIL20 MG PO ×2 (11:13)
[2019-11-03] MEDS ORDERED: HYDROXYZINE PAM50 MG PO ×2 (11:14)
[2019-11-03] MEDS ORDERED: ASPIRIN81 MG PO ×2 (11:14)
[2019-11-03] MEDS ORDERED: POTASSIUM CHLO10 ME1 PO ×2 (11:15)
[2019-11-03] MEDS ORDERED: LANTUS100 UNITS/ SUB-Q ×2 (11:17)
== END 2019-11-03 12:05 | disposition home or self-care (01) | DRG 871 ==
LOC: ED 10:14 → CCU 19:19 → MS 10-28 14:35
PROVIDERS: ADMIT Student in an Organized Health Care Education/Training Program
DX: A41.89 Other specified sepsis (principal); I50.23 Acute on chronic systolic (congestive) heart failure; N17.9 Acute kidney failure, unspecified; S37.011A Minor contusion of right kidney, initial encounter; I27.20 Pulmonary hypertension, unspecified; I11.0 Hypertensive heart disease with heart failure; K21.9 Gastro-esophageal reflux disease without esophagitis; I48.91 Unspecified atrial fibrillation; I35.0 Nonrheumatic aortic (valve) stenosis; E11.9 Type 2 diabetes mellitus without complications; B96.1 Klebsiella pneumoniae [K. pneumoniae] as the cause of diseases classified elsewhere; G47.419 Narcolepsy without cataplexy; R74.0 Nonspecific elevation of levels of transaminase and lactic acid dehydrogenase [LDH]; M79.7 Fibromyalgia; Z95.0 Presence of cardiac pacemaker; Z79.01 Long term (current) use of anticoagulants; Z79.4 Long term (current) use of insulin
CPT/HCPCS: 36415; 51702; 71045; 74176; 80048; 80053; 81001; 82570; 83735; 83880; 84100; 84300; 85025; 87040; 87077; 87088; 87186; 93005; 93010; 93306; 97110; 97116; 97140; 97163; 97165; 97535; 99285-25; A9270; C9803; J0696; J1650; J1815; J1940; J2405; J2550; J7030; J7121

== ENCOUNTER 2019-11-04 09:03 | Emergency (ER) | payer SELFPAY ==
[~2019-11-04] VITALS: Ht 170.2 cm; Wt 94.6 kg
--- OUTSIDE RECORDS SUMMARY | ~2019-11-04 | XMS | Encounter Summary ---
Demographics + + + | Address | [address] | | | [place] [address] | + + + | Home Phone | | + + + | Preferred Language | Unknown | + + + | Marital Status | Single | + + + | Anglican Affiliation | Unknown | + + + | Race | Unknown | + + + | Ethnic Group | Unknown | + + + Author + + + | Author | [facility] | | | and [place] | + + + | Organization | [facility] | | | and [place] | + + + | Address | Unknown | + + + | Phone | Unavailable | + + + Care Team Providers + +------+ + | Care Admin Prog Coord Name | Role | Phone | + +------+ + PCP | Unavailable | + +------+ + Encounter Details +--------+ + + + + | Date | Type | Department | Care Team | Description | +--------+ + + + + | 05/18/ | Orders Only | [facility] | [place] [place] | | | 2019 | | CONVERSION 888 | MD [address] | | | | | AGUSTIN MCMAHAN | [place] | | | | | [place] | [place] [address] | | | | | [address] | [phone] | | | | | [phone] | | | +--------+ + + + + Social History + +-------+ +--------+------+ | Tobacco Use | Types | Packs/Day | Years | Date | | | | | Used | | + +-------+ +--------+------+ | Never Assessed | | | | | + +-------+ [...] | | | | | [place] [address] | | | | | | [phone] | | | | | | | | +--------+---------+ + + + documented as of this encounter Procedures + +--------+ + + + | Procedure Name | Priori | Date/Time | Associated Diagnosis | Comments | | | ty | | | | + +--------+ + + + | ECHO INTERPRETATION | Routin | 05/18/2018 | | Results for this | | OF OUTSIDE FILMS | e | 5:21 PM | | procedure are in the | | | | PST | | results section. | + +--------+ + + + documented in this encounter Results ECHO Interpretation of Outside Films (05/18/2018 5:21 PM PST) + + | Specimen | + + | | + + + + + | Impressions | Performed At | + + + | 1. The left ventricle is mildly dilated, mild concentric hypertrophy | | | and severely impaired systolic function EF 20-25%. 2. The right | | | ventricle is mildly enlarged with impaired systolic function. 3. | | | Moderate to severe aortic stenosis with peak/mean pressure gradient of | | | 22.57mmHg / 13.78mmHg, the aortic valve area by continuity equation | | | is 1.1cm . 4. There is no pericardial effusion. | | + + + + + + | Narrative | Performed At | + + + | Patient Name: Velasquez Bledsoe Date of : 1950 | | | Performing Physician: Safia Cullen | | | | | | INDICATIONS MURMUR CONCLUSIONS 1. The | | | left ventricle is mildly dilated, mild concentric hypertrophy and | | | severely impaired systolic function EF 20-25%. 2. The right ventricle | | | is mildly enlarged with impaired systolic function. 3. Moderate to | | | severe aortic stenosis with peak/mean pressure gradient of 22.57mmHg / | | | 13.78mmHg, the aortic valve area by continuity equation is | | | 1.1cm . 4. There is no pericardial effusion. FINDINGS | | | -------- ECG rhythm: Sinus rhythm. Study: A 2-dimensional | | | transthoracic echocardiogram with m-mode, spectral and color flow | | | Doppler was perfomed. Study: This was a technically adequate study. | | | Left Ventricle: Overall left ventricular systolic function is severely | | | impaired with, an EF between 20 - 25 %. Left Ventricle: The left | | | ventricle is mildly dilated. Left Ventricle: There is mild concentric | | | left ventricular hypertrophy. Left Ventricle: Pseudonormal LV | | | diastolic filling pattern, consistent with elevated LA pressure and | | | moderate dysfunction (Grade II). Right Ventricle: The right ventricle | | | is mildly enlarged measuring between 3.4 - 3.7 cm. Right Ventricle: | | | The right ventricular systolic function is moderately impaired. Right | | | Ventricle: Pacer/ICD wire seen. Left Atrium: The left atrium is | | | moderately enlarged. Right Atrium: The right atrium is mildly | | | enlarged. Right Atrium: Pacemaker wire seen in the right atrial | | | cavity. Aortic Valve: The aortic valve is moderately calcified. | | | Aortic Valve: There is no evidence of aortic regurgitation. Aortic | | | Valve: Moderate to severe aortic stenosis with peak/mean pressure | | | gradient of 22.57mmHg / 13.78mmHg, the aortic valve area by continuity | | | equation is 1.1cm . Aortic Valve: The aortic valve is | | | trileaflet. Aortic Valve: Aortic valve is moderately thickened. | | | Mitral Valve: Normal appearing mitral valve. Mitral Valve: Mild | | | mitral regurgitation is present. Tricuspid Valve: The tricuspid valve | | | appears structurally normal. Tricuspid Valve: Mild tricuspid | | | regurgitation present. Tricuspid Valve: There is no evidence of | | | pulmonary hypertension. Tricuspid Valve: The right ventricular | | | systolic pressure (pulmonary artery systolic pressure), as measured by | | | Doppler, is 62.20mmHg. Pulmonic Valve: Pulmonic valve appears | | | structurally normal. Pulmonic Valve: Trace pulmonic regurgitation. | | | Pericardium: There is no pericardial effusion. Pericardium: No | | | pleural effusion seen. IVC/Hepatic Veins: The inferior vena cava is | | | normal in size and collapses > 50 % with sniff, indicating normal | | | central venous pressures. Aorta: The aortic root, ascending aorta and | | | aortic arch are normal in size. MEASUREMENTS Ao | | | sinus: 3.[address] junct: 2.93 cm IVC: 1.69 cm LA Diam: | | | 4.45 cm EDV(Teich): 192.47 ml IVSd: 1.13 cm LVIDd: 6.17 | | | cm LVPWd: 1.21 cm LVOT Area: 3.20 cm2 LVOT Diam: 2.02 cm | | | %FS: 15.28 % EF(Teich): 31.68 % ESV(Teich): 131.47 ml | | | LVIDs: 5.23 cm SV(Teich): 60.99 ml RVIDd: 3.09 cm LVEF MOD | | | A2C: 26.83 % SV MOD A2C: 64.59 ml LVEF MOD A4C: 27.85 % | | | SV MOD A4C: 49.90 ml EF Biplane: 27.52 % LVEDV MOD BP: | | | 208.83 ml LVESV MOD BP: 151.34 ml LVEDV MOD A2C: 240.68 ml | | | LVLd A2C: 9.96 cm LVEDV MOD A4C: 179.13 ml LVLd A4C: 10.13 | | | cm LVESV MOD A2C: 176.08 ml LVLs A2C: 9.14 cm LVESV MOD A4C: | | | 129.23 ml LVLs A4C: 9.00 cm LAESV(A-L): 102.94 ml LAESV | | | Index (A-L): 52.52 ml/m2 LAAs A2C: 26.69 cm2 LAESV A-L A2C: | | | 99.77 ml LALs A2C: 6.06 cm LAAs A4C: 27.03 cm2 LAESV A-L | | | A4C: 104.24 ml LALs A4C: 5.94 cm RAAs: 21.85 cm2 RAESV | | | A-L: 81.04 ml RAESV MOD: 79.12 ml RALs: 5.00 cm TAPSE: | | | 1.60 cm AV maxP.56 mmHg AV meanP.77 mmHg AV Vmax: | | | 2.37 m/s AV Vmean: 1.78 m/s AV VTI: 46.67 cm ROSIE Vmax: | | | 1.05 cm2 ROSIE (VTI): 1.14 cm2 AVAI Vmax: 0.00 cm2/m2 AVAI | | | (VTI): 0.00 cm2/m2 LVOT maxP.43 mmHg LVOT meanP.35 | | | mmHg LVSI Dopp: 27.30 ml/m2 LVSV Dopp: 53.51 ml LVOT Vmax: | | | 0.78 m/s LVOT Vmean: 0.55 m/s LVOT VTI: 16.68 cm MV A Chavez: | | | 0.38 m/s MV Dec [place]: 4.09 m/s2 MV DecT: 170.49 ms MV E | | | Chavez: 0.69 m/s MV E/A Ratio: 1.80 MV PHT: 49.44 ms MVA By | | | PHT: 4.44 cm2 Septal e': 0.02 m/s Septal E/e': 23.37 | | | Lateral e': 0.09 m/s Lateral E/e': 7.21 RAP: 5 mmHg RVSP: | | | 62.19 mmHg TR maxP.19 mmHg TR Vmax: 3.78 m/s RV s': | | | 0.06 m/s Manager Transfusion: GARETT Authenticated by: Safia Cullen | | | Report Date/Time: 05-18-2018 19:30:54 | | + + + + + | Procedure Note | + + | [facility] - 11/17/2018 2:01 PM PDT Patient Name: Vleasquez BledsoeAnitra of | | : 1950 Performing Physician: Safia Osman [facility] INDICATIONS------ | | -----MURMUR CONCLUSIONS 1. The left ventricle is mildly dilated, mild | | concentric hypertrophy and severely impaired systolic function EF 20-25%.2. The right | | ventricle is mildly enlarged with impaired systolic function.3. Moderate to severe | | aortic stenosis with peak/mean pressure gradient of 22.57mmHg / 13.78mmHg, the aortic | | valve area by continuity equation is 1.1cm .4. There is no pericardial effusion. | | FINDINGS--------ECG rhythm: Sinus rhythm.Study: A 2-dimensional transthoracic | | echocardiogram with m-mode, spectral and color flow Doppler was perfomed.Study: This was | | a technically adequate study.Left Ventricle: Overall left ventricular systolic function | | is severely impaired with, an EF between 20 - 25 %.Left Ventricle: The left ventricle | | is mildly dilated.Left Ventricle: There is mild concentric left ventricular | | hypertrophy.Left Ventricle: Pseudonormal LV diastolic filling pattern, consistent with | | elevated LA pressure and moderate dysfunction (Grade II).Right Ventricle: The right | | ventricle is mildly enlarged measuring between 3.4 - 3.7 cm.Right Ventricle: The right | | ventricular systolic function is moderately impaired.Right Ventricle: Pacer/ICD wire | | seen.Left Atrium: The left atrium is moderately enlarged.Right Atrium: The right atrium | | is mildly enlarged.Right Atrium: Pacemaker wire seen in the right atrial cavity.Aortic | | Valve: The aortic valve is moderately calcified.Aortic Valve: There is no evidence of | | aortic regurgitation.Aortic Valve: Moderate to severe aortic stenosis with peak/mean | | pressure gradient of 22.57mmHg / 13.78mmHg, the aortic valve area by continuity equation | | is 1.1cm .Aortic Valve: The aortic valve is trileaflet.Aortic Valve: Aortic valve | | is moderately thickened.Mitral Valve: Normal appearing mitral valve.Mitral Valve: Mild | | mitral regurgitation is present.Tricuspid Valve: The tricuspid valve appears | | structurally normal.Tricuspid Valve: Mild tricuspid regurgitation present.Tricuspid | | Valve: There is no evidence of pulmonary hypertension.Tricuspid Valve: The right | | ventricular systolic pressure (pulmonary artery systolic pressure), as measured by | | Doppler, is 62.20mmHg.Pulmonic Valve: Pulmonic valve appears structurally | | normal.Pulmonic Valve: Trace pulmonic regurgitation.Pericardium: There is no | | pericardial effusion.Pericardium: No pleural effusion seen.IVC/Hepatic Veins: The | | inferior vena cava is normal in size and collapses > 50 % with sniff, indicating normal | | central venous pressures.Aorta: The aortic root, ascending aorta and aortic arch are | | normal in size. MEASUREMENTS Ao sinus: 3.[address] junct: 2.93 cmIVC: | | 1.69 cmLA Diam: 4.45 cmEDV(Teich): 192.47 mlIVSd: 1.13 cmLVIDd: 6.17 cmLVPWd: | | 1.21 cmLVOT Area: 3.20 [id number] Diam: 2.02 cm%FS: 15.28 %EF(Teich): 31.68 | | %ESV(Teich): 131.47 mlLVIDs: 5.23 cmSV(Teich): 60.99 mlRVIDd: 3.09 cmLVEF MOD | | A2C: 26.83 %SV MOD A2C: 64.59 mlLVEF MOD A4C: 27.85 %SV MOD A4C: 49.90 mlEF | | Biplane: 27.52 %LVEDV MOD BP: 208.83 mlLVESV MOD BP: 151.34 mlLVEDV MOD A2C: | | 240.68 mlLVLd A2C: 9.96 cmLVEDV MOD A4C: 179.13 mlLVLd A4C: 10.13 cmLVESV MOD A2C: | | 176.08 mlLVLs A2C: 9.14 cmLVESV MOD A4C: 129.23 mlLVLs A4C: 9.00 cmLAESV(A-L): | | 102.94 mlLAESV Index (A-L): 52.52 ml/m2LAAs A2C: 26.69 [id number] A-L A2C: 99.77 | | mlLALs A2C: 6.06 cmLAAs A4C: 27.03 [id number] A-L A4C: 104.24 mlLALs A4C: 5.94 | | cmRAAs: 21.85 [id number] A-L: 81.04 mlRAESV MOD: 79.12 mlRALs: 5.00 cmTAPSE: | | 1.60 cmAV maxP.56 mmHgAV meanP.77 mmHgAV Vmax: 2.37 m/Andrew Vmean: 1.78 | | m/Andrew VTI: 46.67 cmAVA Vmax: 1.05 cm2AVA (VTI): 1.14 [id number] Vmax: 0.00 | | cm2/m2AVAI (VTI): 0.00 cm2/m2LVOT maxP.43 mmHgLVOT meanP.35 mmHgLVSI Dopp: | | 27.30 ml/m2LVSV Dopp: 53.51 mlLVOT Vmax: 0.78 m/sLVOT Vmean: 0.55 m/sLVOT VTI: | | 16.68 cmMV A Chavez: 0.38 m/sMV Dec [place]: 4.09 m/s2MV DecT: 170.49 msMV E Chavez: | | 0.69 m/sMV E/A Ratio: 1.80MV PHT: 49.44 msMVA By PHT: 4.44 [id number] e': 0.02 | | m/sSeptal E/e': 23.37Lateral e': 0.09 m/sLateral E/e': 7.21RAP: 5 mmHgRVSP: | | 62.19 mmHgTR maxP.19 mmHgTR Vmax: 3.78 m/sRV s': 0.06 m/s Manager Transfusion: | | DBSAuthenticated by: Safia [facility] Date/Time: 05-18-2018 19:30:54 IMPRESSION: 1. | | The left ventricle is mildly dilated, mild concentric hypertrophy and severely impaired | | systolic function EF 20-25%.2. The right ventricle is mildly enlarged with impaired | | systolic function.3. Moderate to severe aortic stenosis with peak/mean pressure gradient | | of 22.57mmHg / 13.78mmHg, the aortic valve area by continuity equation is | | 1.1cm .4. There is no pericardial effusion. | |EDV(Teich): 192.47 ml | |IVSd: 1.13 cm | |LVIDd: 6.17 cm | |LVPWd: 1.21 cm | |LVOT Area: 3.20 cm2 | |LVOT Diam: 2.02 cm | |%FS: 15.28 % | |EF(Teich): 31.68 % | |ESV(Teich): 131.47 ml | |LVIDs: 5.23 cm | |SV(Teich): 60.99 ml | |RVIDd: 3.09 cm | |LVEF MOD A2C: 26.83 % | |SV MOD A2C: 64.59 ml | |LVEF MOD A4C: 27.85 % | |SV MOD A4C: 49.90 ml | |EF Biplane: 27.52 % | |LVEDV MOD BP: 208.83 ml | |LVESV MOD BP: 151.34 ml | |LVEDV MOD A2C: 240.68 ml | |LVLd A2C: 9.96 cm | |LVEDV MOD A4C: 179.13 ml | |LVLd A4C: 10.13 cm | |LVESV MOD A2C: 176.08 ml | |LVLs A2C: 9.14 cm | |LVESV MOD A4C: 129.23 ml | |LVLs A4C: 9.00 cm | |LAESV(A-L): 102.94 ml | |LAESV Index (A-L): 52.52 ml/m2 | |LAAs A2C: 26.69 cm2 | |LAESV A-L A2C: 99.77 ml | |LALs A2C: 6.06 cm | |LAAs A4C: 27.03 cm2 | |LAESV A-L A4C: 104.24 ml | |LALs A4C: 5.94 cm | |RAAs: 21.85 cm2 | |RAESV A-L: 81.04 ml | |RAESV MOD: 79.12 ml | |RALs: 5.00 cm | |TAPSE: 1.60 cm | |AV maxP.56 mmHg | |AV meanP.77 mmHg | |AV Vmax: 2.37 m/s | |AV Vmean: 1.78 m/s | |AV VTI: 46.67 cm | |ROSIE Vmax: 1.05 cm2 | |ROSIE (VTI): 1.14 cm2 | |AVAI Vmax: 0.00 cm2/m2 | |AVAI (VTI): 0.00 cm2/m2 | |LVOT maxP.43 mmHg | |LVOT meanP.35 mmHg | |LVSI Dopp: 27.30 ml/m2 | |LVSV Dopp: 53.51 ml | |LVOT Vmax: 0.78 m/s | |LVOT Vmean: 0.55 m/s | |LVOT VTI: 16.68 cm | |MV A Chavez: 0.38 m/s | |MV Dec [place]: 4.09 m/s2 | |MV DecT: 170.49 ms | |MV E Chavez: 0.69 m/s | |MV E/A Ratio: 1.80 | |MV PHT: 49.44 ms | |MVA By PHT: 4.44 cm2 | |Septal e': 0.02 m/s | |Septal E/e': 23.37 | |Lateral e': 0.09 m/s | |Lateral E/e': 7.21 | |RAP: 5 mmHg | |RVSP: 62.19 mmHg | |TR maxP.19 mmHg | |TR Vmax: 3.78 m/s | |RV s': 0.06 m/s | | | |Manager Transfusion: DBS | |Authenticated by: Safia Cullen | |Report Date/Time: 05-18-2018 19:30:54 | | | |IMPRESSION: | |1. The left ventricle is mildly dilated, mild concentric hypertrophy and severely impaired systolic function EF 20-25%. | |2. The right ventricle is mildly enlarged with impaired systolic function. | |3. Moderate to severe aortic stenosis with peak/mean pressure gradient of 22.57mmHg / 13.78 mmHg, the aortic valve area by continuity equation is 1.1cm . | |4. There is no pericardial effusion. | + + documented in this encounter Visit Diagnoses Not on filedocumented in this encounter"
--- OUTSIDE RECORDS SUMMARY | ~2019-11-04 | XMS | Encounter Summary ---
Demographics + + + | Address | [address] | | | [place] [address] | + + + | Home Phone | | + + + | Preferred Language | Unknown | + + + | Marital Status | Single | + + + | Gnosticism Affiliation | Unknown | + + + | Race | Unknown | + + + | Ethnic Group | Unknown | + + + Author + + + | Author | [facility] | | | and [place] | + + + | Organization | [facility] | | | and [place] | + + + | Address | Unknown | + + + | Phone | Unavailable | + + + Care Team Providers + +------+ + | Care School Custodian Name | Role | Phone | + [...] [address] | | | | [place], | [address] [place] | | | | | [place] [address] | [place] [address] | | | | | [phone] | [phone] | | | | | | | [...] | | | | | [place] [address] | | | | | | [phone] | | | | | | | [...]
--- OUTSIDE RECORDS SUMMARY | ~2019-11-04 | XMS | Encounter Summary ---
Demographics + + + | Address | [address] | | | [place] [address] | + + + | Home Phone | | + + + | Preferred Language | Unknown | + + + | Marital Status | Single | + + + | Adventism Affiliation | Unknown | + + + | Race | Unknown | + + + | Ethnic Group | Unknown | + + + Author + + + | Author | [facility] | | | and [place] | + + + | Organization | [facility] | | | and [place] | + + + | Address | Unknown | + + + | Phone | Unavailable | + + + Care Team Providers + +------+ + | Care Chainer Name | Role | Phone | + [...] + + | 06/19/ | Telephone | [facility] | David Carter | Appointment Question | | 2019 | | CARDIOLOGY [address] | MD [place] | | | | | [place], | [address] [place] | | | | | [place] [address] | [place] [address] | | | | | [phone] | [phone] | | | | | | | [...] Nick Pacemaker which was placed by the [facility]. Requested records from [facility] and [facility]. 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
--- OUTSIDE RECORDS SUMMARY | ~2019-11-04 | XMS | Clinical Summary ---
Demographics + + + | Address | [address] [place] [address] | | | [place] [address] | + + + | Home Phone | | + + + | Preferred Language | Unknown | + + + | Marital Status | Single | + + + | Baptism Affiliation | Unknown | + + + | Race | Unknown | + + + | Ethnic Group | Unknown | + + + Author + + + | Author | [facility] | | | and [place] | + + + | Organization | [facility] | | | and [place] | + + + | Address | Unknown | + + + | Phone | Unavailable | + + + Care Team Providers + +------+ + | Care Campus Supervisor Name | Role | Phone | [...] + + | Pacemaker, Dual Chamber, [facility], 07/12/2009 [facility] | 07/28/2019 | + + + + + | Overview: Indication: | + + + + + | Sick sinus syndrome (HCC) with symptomatic sinus pauses | 07/28/2019 | + + + + + | Overview: S/P Permanent Pacemaker Placement 07/12/2009 by | | Colin Bañuelos MD [facility] | + + +--------+ + | [...] | | | | | Drew Molina [facility] | | | | | | [place] [address] | | | | | | [phone] | | | | | | | [...] MD | | | | | | /[id number] | | | | | | | [...] +--------+-------+---------+--------+ | [employer] [facility] [place] | [phone] | 04/03/19 | | | Indemn | [...] | | al/Fam | | 1951 | [phone] | [address] [place] | | | [place] | | | 0 (Home) | [address] | + +--------+ +--------+ + + Advance Directives + + + + + | Type | Date Recorded | Patient | Explanation | | | | [employer]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
[~2019-11-04 09:03] MED LIST changes: +ASPIRIN81 MG PO; +CEPHALEXIN250 MG PO; +HYDROXYZINE PAM50 MG PO; +IRON325 M1 PO; +METOPROLOL TART25 MG PO; +MIRALAX119 GM PO; +NORVASC10 MG PO; +POTASSIUM CHLO10 ME1 PO; +PROZAC10 MG PO; +SILDENAFIL20 MG PO; +VITAMIN D325 MCG PO; +ZOCOR40 MG PO
--- OUTSIDE RECORDS SUMMARY | 2019-11-04 09:06 | XMS ---
PreManage Notification: NINA PINZON Security Marketing Manager Events No recent Security Events currently on file CRITERIA MET - [facility] - [facility] - 2 Visits in 30 Days CARE PROVIDERS Name Unknown Custodial Facility Current PHONE: [phone] HEATHER HILLMAN [facility] 10/30/2019-Current PHONE: [phone] SULTANA ZAIDI [facility] 02/15/2019-Current PHONE: Unknown Ten has no Care Guidelines for this patient. E.D. VISIT COUNT (12 MO.) 4 [facility] Wan TOTAL 4 NOTE: Visits indicate total known visits. ED/UCC VISIT TRACKING (12 MO.) 11/04/2019 09:03 [facility] TYPE: Emergency COMPLAINT: - WEAKNESS 10/26/2019 10:15 [facility] TYPE: Emergency COMPLAINT: - WEAKNESS 03/27/2019 15:04 [facility] TYPE: Emergency COMPLAINT: - WOUND VAC CHANGE DIAGNOSES: - penitentiary (current) use of insulin - Chronic kidney disease, stage 3 (moderate) - Other assistant terminal manager (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 - Encounter for change or removal of surgical wound dressing - Allergy status to analgesic agent status - Personal history of nicotine dependence - Allergy status to other drugs, medicaments and biological sub - Heart failure, unspecified - terminal clerk (current) use of anticoagulants - Acquired absence of other specified parts of digestive tract 02/14/2019 19:32 [facility] TYPE: Emergency COMPLAINT: - ABDOMINAL PAIN INPATIENT VISIT TRACKING (12 MO.) 10/26/2019 19:19 [facility] TYPE: Medical Surgical COMPLAINT: - RENAL FAILURE 02/15/2019 06:[address] [facility] TYPE: Medical Surgical COMPLAINT: - INCARCERATED INCISIONAL HERNIA W/BOWEL OBSTRUCTION DIAGNOSES: - Type 2 diabetes mellitus with diabetic chronic kidney disease - terminal clerk (current) use of anticoagulants - Allergy status to analgesic agent status - Pure hypercholesterolemia, unspecified - Body mass index (BMI) 32.0-32.9, adult - Other snf (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 - Presence of cardiac [...] other drugs, medicaments and biological sub - terminal clerk (current) use of insulin - terminal clerk (current) use of inhaled steroids - Ischemic cardiomyopathy - Pulmonary hypertension, unspecified - Hypo-osmolality and hyponatremia [email or web address]
== END 2019-11-04 11:10 | disposition home or self-care (01) ==
LOC: ED 09:03
DX: R53.1 Weakness (principal); E11.22 Type 2 diabetes mellitus with diabetic chronic kidney disease; N18.3 Chronic kidney disease, stage 3 (moderate); I50.9 Heart failure, unspecified; Z88.6 Allergy status to analgesic agent; Z88.8 Allergy status to other drugs, medicaments and biological substances; Z79.899 Other long term (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; Z79.82 Long term (current) use of aspirin; Z79.4 Long term (current) use of insulin
CPT/HCPCS: 80053; 81001; 85025; 87088; 99285

== ENCOUNTER 2019-11-14 17:03 | Emergency (ER) | payer OTHER ==
[~2019-11-14] VITALS: Ht 170.2 cm; Wt 94.6 kg
--- OUTSIDE RECORDS SUMMARY | ~2019-11-14 | XMS | Encounter Summary ---
Demographics + + + | Address | [address] [place] [address] | | | [place] [address] | + + + | Home Phone | | + + + | Preferred Language | Unknown | + + + | Marital Status | Single | + + + | Jew Affiliation | Unknown | + + + | Race | White | + + + | Ethnic Group | Not or | + + + Author + + + | Author | [facility] | | | and [place] | + + + | Organization | [facility] | | | and [place] | + + + | Address | Unknown | + + + | Phone | Unavailable | + + + Care Team Providers + +------+ + | Care Air Traffic Controller Center Name | Role | Phone | + +------+ + | Bisi Calloway MD | PCP | | + +------+ + Encounter Details +--------+ + + + + | Date | Type | Department | Care Team | Description | +--------+ + + + + | 06/27/ | Abstract | [facility] | David Cartre | | | 2020 | | [facility] [address] | MD [address] | | | | | [place], | [address] [place] | | | | | [place] [address] | [place] [address] | | | | | [phone] | [phone] | | | | | | | [...] | | | | | [place] [address] | | | | | | [phone] | | | | | | | [...] + + + + + External Lab: [facility] INR (04/25/2018) + + + + + [...]
--- OUTSIDE RECORDS SUMMARY | ~2019-11-14 | XMS | Encounter Summary ---
Demographics + + + | Address | [address] [place] [address] | | | [place] [address] | + + + | Home Phone | | + + + | Preferred Language | Unknown | + + + | Marital Status | Single | + + + | Scientology Affiliation | Unknown | + + + | Race | White | + + + | Ethnic Group | Not or | + + + Author + + + | Author | [facility] | | | and [place] | + + + | Organization | [facility] | | | and [place] | + + + | Address | Unknown | + + + | Phone | Unavailable | + + + Care Team Providers + +------+ + | Care Curatorial Specialist Name | Role | Phone | + +------+ + PCP | Unavailable | + +------+ + Encounter Details +--------+ + + + + | Date | Type | Department | Care Team | Description | +--------+ + + + + | 05/18/ | Orders Only | [facility] | [place] | | | 2019 | | CONVERSION [address] | MD Nakia Garcia | | | | | [address]MA[place] | [place] | | | | | [place] | [place] [address] | | | | | [address] | [phone] | | | | | [phone] | | | +--------+ + + + [...] | | | | | [place] [address] | | | | | | [phone] | | | | | | | [...] | | | 0.38 m/s MV Dec Overton: 4.09 m/s2 MV DecT: 170.49 ms MV [...] RV s': | | | 0.06 m/s Computer Console Operator: GARETT Authenticated by: Safia Cullen | | | Report Date/Time: 05-18-2018 19:30:54 | | + + + + + | Procedure Note | + + | Arya [facility] - 11/17/2018 2:01 PM PDT Patient Name: Maximiliano Bledsoe of | | : 1950 Performing Physician: Safia | | Alyse INDICATIONS------ | | -----MURMUR CONCLUSIONS 1. The [...] cmLVPWd: | | 1.21 cmLVOT Area: 3.20 [id number] Diam: 2.02 cm%FS: 15.28 %EF(Teich): 31.68 | [...] mlLAESV Index (A-L): 52.52 ml/m2LAAs A2C: 26.69 [id number] A-L A2C: 99.77 | | mlLALs A2C: 6.06 cmLAAs A4C: 27.03 du9GZECR A-L A4C: 104.24 mlLALs A4C: 5.94 | | cmRAAs: 21.85 [id number] A-L: 81.04 mlRAESV MOD: 79.12 mlRALs: 5.00 cmTAPSE: | | 1.60 cmAV maxP.56 mmHgAV meanP.77 mmHgAV Vmax: 2.37 m/Andrew Vmean: 1.78 | | m/Andrew VTI: 46.67 cmAVA Vmax: 1.05 cm2AVA (VTI): 1.14 [id number] Vmax: 0.00 | | cm2/m2AVAI (VTI): 0.00 cm2/m2LVOT maxP.43 mmHgLVOT meanP.35 mmHgLVSI Dopp: | | 27.30 ml/m2LVSV Dopp: 53.51 mlLVOT Vmax: 0.78 m/sLVOT Vmean: 0.55 m/sLVOT VTI: | | 16.68 cmMV A Chavez: 0.38 m/sMV Dec Overton: 4.09 m/s2MV DecT: 170.49 msMV E Chavez: | | 0.69 m/sMV E/A Ratio: 1.80MV PHT: 49.44 msMVA By PHT: 4.44 [id number] e': 0.02 | | m/sSeptal E/e': 23.37Lateral e': 0.09 m/sLateral E/e': 7.21RAP: 5 mmHgRVSP: | | 62.19 mmHgTR maxP.19 mmHgTR Vmax: 3.78 m/sRV s': 0.06 m/s Computer Console Operator: | | DBSAuthenticated by: Safia Diezformerly [facility] Date/Time: 05-18-2018 19:30:54 IMPRESSION: 1. | | [...] A Chavez: 0.38 m/s | |MV Dec Overton: 4.09 m/s2 | |MV DecT: 170.49 ms [...] |RV s': 0.06 m/s | | | |Computer Console Operator: DBS | |Authenticated by: Safia Diez | |Report Date/Time: 05-18-2018 19:30:54 | | [...]
--- OUTSIDE RECORDS SUMMARY | ~2019-11-14 | XMS | Clinical Summary ---
Demographics + + + | Address | [address] [place] [address] | | | [place] [address] | + + + | Home Phone | | + + + | Preferred Language | Unknown | + + + | Marital Status | Single | + + + | Jainism Affiliation | Unknown | + + + | Race | White | + + + | Ethnic Group | Not or | + + + Author + + + | Author | [facility] | | | and [place] | + + + | Organization | [facility] | | | and [place] | + + + | Address | Unknown | + + + | Phone | Unavailable | + + + Care Team Providers + +------+ + | Care Jewelry Department Supervisor Name | Role | Phone | + [...] | Pacemaker, Dual Chamber, [employer], 07/12/2009 [facility] | 07/28/2019 | + + + + + | Overview: Indication: | + + + + + | Sick sinus syndrome (HCC) with symptomatic sinus pauses | 07/28/2019 | + + + + + | Overview: S/P Permanent Pacemaker Placement 07/12/2009 by | | Colin Bañuelos MD [facility] | + + +--------+ + | [...] | | | | | [place] [address] | | | | | | [phone] | | | | | | | [...] Ra Lead-07/12/2009Implanted: | Lead | | [facility] | | | [id number] | | Qty: 1 on 07/12/2009 by | | | MEDICAL - | | | | | Colin Bañuelos MD | | | [facility] | | | /[id number] | | | | | | | | 1498 / | + +--------+------+ +--------+--------+--------+ | Rv Lead-07/12/2009Implanted: | Lead | | [facility] | | | [id number] | | Qty: 1 on 07/12/2009 by | | | MEDICAL - | | | TC | | Colin Bañuelos MD | | | [facility] | | | /[id number] | | | | | | | | 2124 / | + +--------+------+ +--------+--------+--------+ | Pacemaker,Dual | Pacema | | [facility] | | | ACCENT | | Chamber-07/12/2009Implanted: | ker | | MEDICAL - | | | DR | | Qty: 1 on 07/12/2009 by | | | [facility] | | | 2110 | | Colin Bañuelos MD | | | | | | /[id number] | | | | | | | [...] +--------+-------+---------+--------+ | [employer] [place] | [phone] | 04/03/19 | | | Indemn | [...] | Self | [birth year] | [address] | | | al/Fam | | 1951 | [phone] | [address] [place] | | | [place] | | | 0 (Home) | [address] | + +--------+ +--------+ + + Advance Directives + + + + + | Type | Date Recorded | Patient | Explanation | | | | 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
--- OUTSIDE RECORDS SUMMARY | ~2019-11-14 | XMS | Encounter Summary ---
Demographics + + + | Address | [address] [place] [address] | | | [place] [address] | + + + | Home Phone | | + + + | Preferred Language | Unknown | + + + | Marital Status | Single | + + + | Shinto Affiliation | Unknown | + + + | Race | White | + + + | Ethnic Group | Not or | + + + Author + + + | Author | [facility] | | | and [place] | + + + | Organization | [facility] | | | and [place] | + + + | Address | Unknown | + + + | Phone | Unavailable | + + + Care Team Providers + +------+ + | Care Door Cutter Name | Role | Phone | + [...] + + | 06/19/ | Telephone | [facility] [place] | David Carter | Appointment Question | | 2019 | | CARDIOLOGY [address] | MD [address] | | | | | [place], | [address] [place] | | | | | [place] [address] | [place] [address] | | | | | [phone] | [phone] | | | | | | | [...] Nick Pacemaker which was placed by the [facility]. Requested records from [facility] and [facility]. Electronically signed by: Gisselle Crouch RN 07/28/2019 12:45 PM elephone Encounter - Millie Maddox Cemetery Worker - 06/20/2019 9:16 AM PDTCalled patient to [...] | | | | | | [address] | | | | | | [place] [address] | | | | | | [phone] | | | | | | | | +--------+---------+ + + + documented as of this encounter Visit Diagnoses + + | Diagnosis | + + | Pacemaker reprogramming/check Fitting and adjustment of cardiac pacemaker | + + | Pacemaker, Dual Chamber, [facility], 07/12/2009 [facility] Cardiac pacemaker in situ | + + documented in this encounter"
--- OUTSIDE RECORDS SUMMARY | 2019-11-14 17:06 | XMS ---
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 - CONCERNS FOR PATIENT CARE IN THE HOME AND REQUESTING URGENT FOLLOW UP FOR PATIENT. - W HAS NOT BEEN ABLE TO CONTACT PATIENT-NUMBER LISTED GOES STRAIGHT TO VOICEMAIL. 11/06/2019 [facility] HAS LEFT 2 MESSAGES FOR PATIENT- - WHEN PATIENT WAS INPATIENT THEY OFFERED PATIENT TO GO TO A SNF -PATIENT REFUSED. - THE [facility] WILL BE CONTACTING PATIENT FOR [facility] REVIEW FOR SERVICES. - PATIENT DOES NOT HAVE CAREGIVERS IN THE HOME CURRENTLY DUE TO [facility] REVIEW NEEDED- CAN TAKE A FEW WEEKS TO SEE IF PATIENT IS ELIGIBLE FOR SERVICES. E.Jeffrey. VISIT COUNT (12 MO.) 5 [facility] TOTAL 5 NOTE: Visits indicate total known visits. ED/UCC VISIT TRACKING (12 MO.) 11/14/2019 17:03 [facility] [place] TYPE: Emergency COMPLAINT: - WEAKNESS 11/04/2019 09:03 [facility] [place] TYPE: Emergency COMPLAINT: - WEAKNESS DIAGNOSES: - Type 2 diabetes mellitus with diabetic chronic kidney disease - Weakness - Allergy status to other drugs, medicaments and biological sub - Heart failure, unspecified - intermediate (current) use of aspirin - intermediate (current) use of insulin - Chronic kidney disease, stage 3 (moderate) - Allergy status to analgesic agent status - Other fci (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 10/26/2019 10:15 [facility] [place] TYPE: Emergency COMPLAINT: - WEAKNESS 03/27/2019 15:04 [facility] [place] TYPE: Emergency COMPLAINT: - WOUND VAC CHANGE DIAGNOSES: - intermediate (current) use of insulin - Chronic kidney disease, stage 3 (moderate) - 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 adjunct faculty for medical 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 (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 - Encounter for change or removal of surgical wound dressing - Allergy status to analgesic agent status - Personal history of nicotine dependence - Allergy status to other drugs, medicaments and biological sub - Heart failure, unspecified - intermediate (current) use of anticoagulants - Acquired absence of other specified parts of digestive tract 02/14/2019 19:32 [facility] [place] TYPE: Emergency COMPLAINT: - ABDOMINAL PAIN INPATIENT VISIT TRACKING (12 MO.) 10/26/2019 19:19 [facility] [place] TYPE: Medical Surgical COMPLAINT: - RENAL FAILURE DIAGNOSES: - Minor contusion of right kidney, initial encounter - Narcolepsy without cataplexy - Nonrheumatic aortic (valve) stenosis - Pulmonary hypertension, unspecified - Type 2 diabetes mellitus without complications - 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 pneumoniae] as the cause of disease - Acute on chronic systolic (congestive) heart failure - Gastro-esophageal reflux disease without esophagitis - Acute kidney failure, unspecified - Nonspecific elevation of levels of transaminase and lactic ac - Type 2 diabetes mellitus without complications - Presence of cardiac pacemaker - Minor contusion of right kidney, initial encounter - Hypertensive heart disease with heart failure - Fibromyalgia - intermediate (current) use of anticoagulants - Hypertensive heart disease with heart failure - Unspecified atrial fibrillation - Nonrheumatic aortic (valve) stenosis - Acute on chronic systolic (congestive) heart failure - Pulmonary hypertension, unspecified - Klebsiella pneumoniae [K. 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 - Other specified sepsis - Gastro-esophageal reflux disease without esophagitis 02/15/2019 06:48 [facility] [place] TYPE: Medical Surgical COMPLAINT: - INCARCERATED INCISIONAL HERNIA W/BOWEL OBSTRUCTION DIAGNOSES: - Type 2 diabetes mellitus with diabetic chronic kidney disease - intermediate (current) use of anticoagulants - Allergy status to analgesic agent status - Pure hypercholesterolemia, unspecified - Body mass index (BMI) 32.0-32.9, adult - Other adjunct faculty for medical terminology (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 - Presence of cardiac [...] other drugs, medicaments and biological sub - 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
--- NOTE | 2019-11-15 14:35 | EKG ---
[facility] [address] [facility] [place] [address] Signed Sinus rhythm with frequent ventricular-paced complexes and premature atrial complexes with aberrant conduction Nonspecific intraventricular block Marked ST abnormality, possible anterior subendocardial injury Abnormal ECG No previous ECGs available Confirmed by SHRIIN GROSS MD ([id number]) on 11/15/2019 2:35:21 PM Electronically Signed By: SHIRIN GROSS MD 11/15/19 1435 PATIENT NAME: JEROMYNINA Electrocardiogram DATE OF : 54 PHYSICIAN: SHIRIN GROSS MD REPORT #: [id number] REPORT IS CONFIDENTIAL AND NOT TO BE RELEASED WITHOUT AUTHORIZATION
== END 2019-11-14 23:42 | disposition short-term general hospital (02) ==
LOC: ED 17:03
DX: J44.1 Chronic obstructive pulmonary disease with (acute) exacerbation (principal); I50.9 Heart failure, unspecified; N39.0 Urinary tract infection, site not specified; E11.22 Type 2 diabetes mellitus with diabetic chronic kidney disease; N18.3 Chronic kidney disease, stage 3 (moderate); I25.10 Atherosclerotic heart disease of native coronary artery without angina pectoris; M79.7 Fibromyalgia; Z95.1 Presence of aortocoronary bypass graft; Z88.8 Allergy status to other drugs, medicaments and biological substances; Z79.899 Other long term (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; Z79.4 Long term (current) use of insulin
CPT/HCPCS: 51702; 71045; 80053; 81001; 82550; 83605; 83735; 83880; 84484; 85025; 93005; 93010; 94640; 99285-25; J0696; J1940; J7512